=== PATIENT | female | born 1985 | race Caucasian/White ===

== ENCOUNTER 2016-10-29 03:12 | Inpatient (IN) | payer BC ==
[2016-10-29] MEDS ORDERED: Lactated Ringers 1,000 ML IV SCH ×2 (04:30→18:45)
[2016-10-29] MEDS ORDERED: Ondansetron 4 MG/2 ML SDV IV PRN (06:03)
[2016-10-29] MEDS ORDERED: Calcium Carbonate 500 MG Tab.Chew PO PRN (06:03)
[2016-10-29] MEDS ORDERED: Sodium Chloride 0.9% 10 ML Syringe FLUSH PRN (06:03)
[2016-10-29] MEDS ORDERED: Acetaminophen 325 MG Tab PO PRN (06:03)
--- NOTE | 2016-10-29 07:17 | PCM.LDHP ---
L&D History of Present Illness - General Date of Service: 10/29/16 (RIGO-11/04/2016) Admit Problem/Dx: Patient Status Order with Admit Dx/Problem 10/29/16 06:03 Patient Status [ADT] Routine Admission Diagnosis/Problem Admission Diagnosis/Problem Source of Information: Patient History Limitations: Reports: No Limitations - History of Present Illness Improves with: Reports: None Worsens with: Reports: None Associated Symptoms: Reports: N - Related Data Allergies/Adverse Reactions: Allergies Allergy/AdvReac Type Severity Reaction Status Date / Time No Known Allergies Allergy Verified 10/29/16 03:20 Home Medications: Home Meds Pnv22/Iron Cbn&Gluc/Fa/Dss/Dha [PNV OB + DHA] 1 each PO DAILY 10/29/16 [History] Past Medical History HEENT History: Reports: Impaired Vision COST ANALYST History: Reports: None, Other (See Below) : 2 Para: 0 Other OB/BYN History: leep procedure hx D&C ITP. RIGO-11/04/2016 Social & Family History - Tobacco Use Smoking Status *Q: Never Smoker - Caffeine Use Caffeine Use: Reports: None - Recreational Drug Use Recreational Drug Use: No H&P Review of Systems - Review of Systems: Review Of Systems: See Below General: Reports: No Symptoms HEENT: Reports: No Symptoms Pulmonary: Reports: No Symptoms Cardiovascular: Reports: No Symptoms Gastrointestinal: Reports: No Symptoms Genitourinary: Reports: No Symptoms Musculoskeletal: Reports: No Symptoms Skin: Reports: No Symptoms Psychiatric: Reports: No Symptoms Neurological: Reports: No Symptoms Hematologic/Lymphatic: Reports: No Symptoms Immunologic: Reports: No Symptoms L&D Exam - Exam Exam: See Below - Vital Signs Vital Signs: Last Vital Signs Temp 36.3 C 10/29/16 03:32 Pulse 118 H 10/29/16 06:31 Resp 18 10/29/16 06:31 BP 136/81 10/29/16 06:31 Pulse Ox - OB Specific Contraction Duration (sec): 40-50 Contraction Frequency (min): 1.5-2 Contraction Intensity: Mild to Moderate Movement: Active Heart Tones: Present Presentation: Vertex - Cronin Score Cronin Score Cervix Position: Posterior Cronin Score Consistency: Medium Cronin Score Effacement: 51-70% Cronin Score Dilation: 1-2 cm Cronin Score Infant's Station: -2 Cronin Score Total: 5 - Exam General: Alert, Oriented HEENT: PERRLA, Conjunctiva Clear, EACs Clear, EOMI, Hearing Intact, Mucosa Moist & [place], Nares Patent, Normal Nasal Septum, Posterior Pharynx Clear, Pupils Equal, Pupils Reactive, TMs Clear Neck: Supple, Trachea Midline Lungs: Clear to Auscultation, Normal Respiratory Effort Cardiovascular: Regular Rate, Regular Rhythm Abdomen: Normal Bowel Sounds, Soft, Pelvis Stable Genitourinary: Normal external exam Back Exam: Normal Inspection, Full Range of Motion Extremities: Normal Inspection Skin: Warm, Dry, Intact Neurological: Cranial Nerves Intact, Reflexes Equal Bilateral DTR: 2+: Patella (L), Patella (R) Psychiatric: Alert, Normal Affect, Normal Mood - Patient Data Lab Results last 24 hrs: Laboratory Results - last 24 hr 10/29/16 10/29/16 10/29/16 Range/Units 03:18 03:32 04:29 WBC 14.6 H (4.5-11.0) K/uL RBC 4.75 (3.30-5.50) M/uL Hgb 13.1 (12.0-15.0) g/dL Hct 39.5 (36.0-48.0) % MCV 83 (80-98) fL MCH 28 (27-31) pg MCHC 33 (32-36) % Plt Count 97 L (150-400) K/uL Neut % (Auto) 80 H (36-66) % Lymph % (Auto) 12 L (24-44) % [place] % (Auto) 7 H (2-6) % Eos % (Auto) 1 L (2-4) % Baso % (Auto) 0 (0-1) % Urine Color Yellow Urine Appearance Slightly cloudy Urine pH 5.0 (4.5-8.0) Ur Specific [place] 1.025 (1.008-1.030) Urine Protein Negative (NEGATIVE) mg/dL Urine Glucose (UA) Normal (NEGATIVE) mg/dL Urine Ketones Negative (NEGATIVE) mg/dL Urine Occult Blood Moderate (NEGATIVE) Urine Nitrite Negative (NEGATIVE) Urine Bilirubin Negative (NEGATIVE) Urine Urobilinogen Normal (NORMAL) mg/dL Ur Leukocyte Esterase Negative (NEGATIVE) Urine RBC 5-10 H (0-5) Urine WBC 0-5 (0-5) Ur Epithelial Cells Moderate Amorphous Sediment Not seen Urine Bacteria Few Urine Mucus Moderate Membrane Rupture Positive H (NEGATIVE) Result Diagrams: 10/29/16 04:29 - Problem List (1) SNOMED Code(s): 29630293 ICD Code: Z33.1 - STATE, INCIDENTAL Status: Acute Current Visit : Yes Qualifiers: Weeks of gestation: 39 weeks Qualified Code(s): Z3A.39 - 39 weeks gestation of (2) PROM (premature rupture of membranes) SNOMED Code(s): 55648139 ICD Code: O42.90 - IWLLAM ROM, 7TH0 BETW RUPT & ONST LABR, UNSP WEEKS OF GEST Status: Acute Current Visit: Yes Qualifiers: PROM gestational age: full term (3) Chronic ITP (idiopathic thrombocytopenia) SNOMED Code(s): 065428528 ICD Code: D69.3 - IMMUNE THROMBOCYTOPENIC PURPURA Status: Acute Current Visit: Yes Problem List Initiated/Reviewed/Updated: Yes Orders Last 24hrs: Active Orders 24 hr Category Date Time Status Patient Status [ADT] Routine ADT 10/29/16 06:03 Ordered Ambulate [RC] PER UNIT ROUTINE Care 10/29/16 06:10 Ordered Communication Order [RC] ASDIRECTED Care 10/29/16 06:03 Ordered Heart Tones [RC] PER UNIT ROUTINE Care 10/29/16 06:03 Ordered May Shower [RC] ASDIRECTED Care 10/29/16 06:03 Ordered Notify Provider Vital Signs [RC] PRN Care 10/29/16 06:03 Ordered Notify Provider [RC] PRN Care 10/29/16 06:03 Ordered OB Check [OM.PC] Click to Edit Care 10/29/16 03:18 Ordered Up ad Noemi [RC] ASDIRECTED Care 10/29/16 06:03 Ordered VTE/DVT Education [RC] Click to Edit Care 10/29/16 06:05 Ordered Vital Signs [RC] PER UNIT ROUTINE Care 10/29/16 06:03 Ordered Regular Diet [DIET] Diet 10/29/16 Breakfast Active CBC WITH AUTO DIFF [HEME] Routine Lab 10/30/16 06:00 Ordered Acetaminophen [Tylenol] Med 10/29/16 06:03 Ordered 650 mg PO Q4H PRN Calcium Carbonate [Tums] Med 10/29/16 06:03 Ordered 1,000 mg PO Q2HR PRN Lactated Ringers [Ringers, Lactated] 1,000 ml Med 10/29/16 04:30 Active IV ASDIRECTED Ondansetron [Zofran] Med 10/29/16 06:03 Ordered 4 mg IV Q4H PRN Oxytocin/Normal Saline [Pitocin in NS 20 Units/1,000 ML Med 10/29/16 04:30 Active ] 20 unit in 1,000 ml IV TITRATE Sodium Chloride 0.9% [Saline Flush] Med 10/29/16 06:03 Ordered 10 ml FLUSH ASDIRECTED PRN fentaNYL [Sublimaze] Med 10/29/16 06:03 Ordered 100 mcg IVPUSH Q1H PRN DVT/VTE Prophylaxis Reflex [OM.PC] Routine Oth 10/29/16 06:03 Ordered Saline Lock Insert [OM.PC] Routine Oth 10/29/16 06:03 Ordered Resuscitation Status Routine Resus Stat 10/29/16 06:03 Ordered Medication Orders Acetaminophen (Tylenol) 650 mg PO Q4H PRN PRN Reason: Pain (Mild 1-3) and fever Calcium Carbonate/Glycine (Tums) 1,000 mg PO Q2H PRN PRN Reason: Indigestion Fentanyl (Sublimaze) 100 mcg IVPUSH Q1H PRN PRN Reason: Pain (moderate 4-6) Oxytocin/Sodium Chloride (Pitocin In Ns 20 Units/1,000 Ml) 20 unit in 1,000 mls @ 6 mls/hr IV TITRATE REHANA; 2 MUNITS/MIN PRN Reason: Protocol Last Admin: 10/29/16 04:45 Dose: 2 munits/min, 6 mls/hr Lactated Ringer's (Ringers, Lactated) 1,000 mls @ 0 mls/hr IV ASDIRECTED REHANA PRN Reason: KVO Last Admin: 10/29/16 04:41 Dose: 25 mls/hr Ondansetron HCl (Zofran) 4 mg IV Q4H PRN PRN Reason: Nausea/Vomiting Sodium Chloride (Saline Flush) 10 ml FLUSH ASDIRECTED PRN PRN Reason: Keep Vein Open Assessment/Plan Comment:: 10/29/2016 31 yo at 39 1/7 weeks gestational states she ruptured around 930pm last night but was unsure if leaking was it till a big gush at 0200. SVE-//-2 ruptured Labs-GBS negative, A positive, Rubella Immune, RPR Nonreactive, Hep B negative, HIV negative, Hgb 13.1, Platelets 97 Chronic ITP Plan- Monitor for active labor Initiate Pitocin per protocol Up and about monitoring per protocol Pain management per her request Plan and anticipate a vaginal delivery
--- NOTE | 2016-10-29 12:29 | PCM.PNLD ---
Labor Progress Note - VS & Meds Vital Signs: Last Vital Signs Temp 36.6 C 10/29/16 10:20 Pulse 107 H 10/29/16 10:20 Resp 14 10/29/16 07:15 BP 125/78 10/29/16 10:20 Pulse Ox Active Medications: Current Medications Acetaminophen (Tylenol) 650 mg PO Q4H PRN PRN Reason: Pain (Mild 1-3) and fever Calcium Carbonate/Glycine (Tums) 1,000 mg PO Q2H PRN PRN Reason: Indigestion Fentanyl (Sublimaze) 100 mcg IVPUSH Q1H PRN PRN Reason: Pain (moderate 4-6) Oxytocin/Sodium Chloride (Pitocin In Ns 20 Units/1,000 Ml) 20 unit in 1,000 mls @ 6 mls/hr IV TITRATE REHANA; 2 MUNITS/MIN PRN Reason: Protocol Last Titration: 10/29/16 11:48 Dose: 4 munits/min, 12 mls/hr Lactated Ringer's (Ringers, Lactated) 1,000 mls @ 0 mls/hr IV ASDIRECTED REHANA PRN Reason: KVO Last Admin: 10/29/16 04:41 Dose: 25 mls/hr Lactated Ringer's (Ringers, Lactated) 1,000 mls @ 999 mls/hr IV BOLUS REHANA Penicillin G Potassium 5 (millunits/ Sodium Chloride) 100 mls @ 200 mls/hr IV ONETIME ONE Stop: 10/29/16 15:29 Penicillin G Potassium 2.5 (millunits/ Sodium Chloride) 100 mls @ 200 mls/hr IV Q4H REHANA Ondansetron HCl (Zofran) 4 mg IV Q4H PRN PRN Reason: Nausea/Vomiting Sodium Chloride (Saline Flush) 10 ml FLUSH ASDIRECTED PRN PRN Reason: Keep Vein Open - Uterine Contractions Uterine Monitoring Mode: External [place] Contraction Frequency (min): 2 Contraction Duration (sec): 60 Contraction Intensity: Moderate Uterine Resting Tone: Soft - Monitoring Decelerations: None Strip Review: Category I - Vaginal Exam Dilation (cm): 2-3 Effacement (Percent): 80 Station: -2 Cervical Position: Midposition Sterile Vaginal Exam Performed By: Lucille Vargas Vaginal Exam Comment: lucille haider - Labor Progress (Free Text) Labor Progress: 10/29/2013 Patient remains in latent labor SVE-2-3/80/-2 more midposition now Patient well controlled with breathing and position changes and has been in the tub for pain control Plan- Continue to monitor for active labor Continue to monitor FHTs Continue with Pitocin Pen G IV to be initiated at 18hrs post rupture Pain management per patient request Plan and anticipate a vaginal delivery
[2016-10-29] MEDS ORDERED: Lactated Ringers 500 ML IV ONE (12:30)
[2016-10-29] MEDS: fentaNYL 100 MCG/2 ML SDV IVPUSH PRN ×3 (14:42→18:10)
[2016-10-29] MEDS ORDERED: Penicillin G Potassium 5 MILLUNITS in Sodium Chloride 0.9% 100 ML IV ONE (15:00)
[2016-10-29] MEDS ORDERED: Oxytocin 10 Units/1 ML SDV ONE ×2 (15:45→22:56)
[2016-10-29] MEDS ORDERED: Naloxone 0.4 MG/ML SDV ONE (15:45)
[2016-10-29] MEDS ORDERED: Lidocaine 1% 50 ML MDV ONE (15:46)
[2016-10-29] MEDS ORDERED: Lactated Ringers 1,000 ML IV ONE ×2 (17:13→17:24)
--- NOTE | 2016-10-29 17:24 | PCM.PNLD ---
Labor Progress Note - VS & Meds Vital Signs: Last Vital Signs Temp 35.7 C 10/29/16 16:28 Pulse 115 H 10/29/16 16:28 Resp 18 10/29/16 16:28 BP 108/77 10/29/16 16:28 Pulse Ox 99 10/29/16 16:28 Active Medications: Current Medications Acetaminophen (Tylenol) 650 mg PO Q4H PRN PRN Reason: Pain (Mild 1-3) and fever Calcium Carbonate/Glycine (Tums) 1,000 mg PO Q2H PRN PRN Reason: Indigestion Fentanyl (Sublimaze) 100 mcg IVPUSH Q1H PRN PRN Reason: Pain (moderate 4-6) Last Admin: 10/29/16 16:59 Dose: 100 mcg Oxytocin/Sodium Chloride (Pitocin In Ns 20 Units/1,000 Ml) 20 unit in 1,000 mls @ 6 mls/hr IV TITRATE REHANA; 2 MUNITS/MIN PRN Reason: Protocol Last Titration: 10/29/16 11:48 Dose: 4 munits/min, 12 mls/hr Lactated Ringer's (Ringers, Lactated) 1,000 mls @ 0 mls/hr IV ASDIRECTED REHANA PRN Reason: KVO Last Infusion: 10/29/16 12:57 Dose: 25 mls/hr Penicillin G Potassium 2.5 (millunits/ Sodium Chloride) 50 mls @ 100 mls/hr IV Q4H REHANA Lactated Ringer's (Ringers, Lactated) 1,000 mls @ 999 mls/hr IV BOLUS ONE Stop: 10/29/16 18:13 Ondansetron HCl (Zofran) 4 mg IV Q4H PRN PRN Reason: Nausea/Vomiting Sodium Chloride (Saline Flush) 10 ml FLUSH ASDIRECTED PRN PRN Reason: Keep Vein Open Discontinued Medications Lactated Ringer's (Ringers, Lactated) 500 mls @ 500 mls/hr IV BOLUS ONE Stop: 10/29/16 13:29 Last Admin: 10/29/16 14:19 Dose: Not Given Penicillin G Potassium 5 (millunits/ Sodium Chloride) 100 mls @ 100 mls/hr IV ONETIME ONE Stop: 10/29/16 15:59 Last Admin: 10/29/16 14:23 Dose: 100 mls/hr Lidocaine HCl (Xylocaine 1%) Confirm Administered Dose 100 ml .ROUTE .STK-MED ONE Stop: 10/29/16 15:47 Naloxone HCl (Narcan) Confirm Administered Dose 0.4 mg .ROUTE .STK-MED ONE Stop: 10/29/16 15:46 Oxytocin (Pitocin) Confirm Administered Dose 10 unit .ROUTE .STK-MED ONE Stop: 10/29/16 15:46 - Uterine Contractions Uterine Monitoring Mode: External [place] Contraction Frequency (min): 2 Contraction Duration (sec): 60 Contraction Intensity: Strong Uterine Resting Tone: Soft - Monitoring Decelerations: None Strip Review: Category I - Vaginal Exam Dilation (cm): 5 Effacement (Percent): 90 Station: 0 Cervical Position: Anterior Sterile Vaginal Exam Performed By: Lucille Vargas Vaginal Exam Comment: lucille haider - Labor Progress (Free Text) Labor Progress: 10/29/2016 Patient working hard through labor. SVE-5/90/-1-0 Patient managing pain with breathing, position change, and tub Patient has had IV pain medication and states it is not working-she requests an epidural Did type and screen due to ITP Initiated antibiotics at 18 hr rupture marly Plan- Continue to monitor labor Continue to monitor FHTs Get patient an epidural per her request Continue antibiotics for SROM-18+ hours Plan and anticipate vaginal delivery
[2016-10-29] MEDS ORDERED: ePHEDrine 50 MG/ML SDV IVPUSH ONE (17:25)
[2016-10-29] MEDS ORDERED: ePHEDrine 50 MG/ML SDV IVPUSH PRN ×2 (17:35→19:12)
[2016-10-29] MEDS ORDERED: ePHEDrine 50 MG/ML SDV ONE (17:41)
[2016-10-29] MEDS ORDERED: Ropivacaine 100 ML ONE (18:51)
[2016-10-29] MEDS ORDERED: Naloxone 0.4 MG/ML SDV IVPUSH PRN (19:09)
[2016-10-29] MEDS: Penicillin G Potassium 2.5 MILLUNITS in Sodium Chloride 0.9% 50 ML IV SCH (19:14)
--- NOTE | 2016-10-29 19:14 | PCM.PNLD ---
Labor Progress Note - VS & Meds Vital Signs: Last Vital Signs Temp 35.3 C 10/29/16 18:17 Pulse 105 H 10/29/16 18:45 Resp 18 10/29/16 18:45 BP 112/65 10/29/16 18:45 Pulse Ox 97 10/29/16 18:45 Active Medications: Current Medications Acetaminophen (Tylenol) 650 mg PO Q4H PRN PRN Reason: Pain (Mild 1-3) and fever Calcium Carbonate/Glycine (Tums) 1,000 mg PO Q2H PRN PRN Reason: Indigestion Ephedrine Sulfate (Ephedrine Sulfate) 50 mg IVPUSH ASDIRECTED PRN PRN Reason: PER EPIDURAL PROTOCOL Fentanyl (Sublimaze) 100 mcg IVPUSH Q1H PRN PRN Reason: Pain (moderate 4-6) Last Admin: 10/29/16 18:10 Dose: 100 mcg Oxytocin/Sodium Chloride (Pitocin In Ns 20 Units/1,000 Ml) 20 unit in 1,000 mls @ 6 mls/hr IV TITRATE REHANA; 2 MUNITS/MIN PRN Reason: Protocol Last Titration: 10/29/16 11:48 Dose: 4 munits/min, 12 mls/hr Lactated Ringer's (Ringers, Lactated) 1,000 mls @ 0 mls/hr IV ASDIRECTED REHANA PRN Reason: KVO Last Infusion: 10/29/16 12:57 Dose: 25 mls/hr Penicillin G Potassium 2.5 (millunits/ Sodium Chloride) 50 mls @ 100 mls/hr IV Q4H REHANA Lactated Ringer's (Ringers, Lactated) 1,000 mls @ 125 mls/hr IV ASDIRECTED REHANA Naloxone HCl (Narcan) 0.1 mg IVPUSH ASDIRECTED PRN PRN Reason: RESPIRATORY STATUS Ondansetron HCl (Zofran) 4 mg IV Q4H PRN PRN Reason: Nausea/Vomiting Sodium Chloride (Saline Flush) 10 ml FLUSH ASDIRECTED PRN PRN Reason: Keep Vein Open Discontinued Medications Ephedrine Sulfate (Ephedrine Sulfate) 50 mg IVPUSH ONETIME ONE Stop: 10/29/16 17:26 Ephedrine Sulfate (Ephedrine Sulfate) Confirm Administered Dose 50 mg .ROUTE .STK-MED ONE Stop: 10/29/16 17:42 Lactated Ringer's (Ringers, Lactated) 500 mls @ 500 mls/hr IV BOLUS ONE Stop: 10/29/16 13:29 Last Admin: 10/29/16 14:19 Dose: Not Given Penicillin G Potassium 5 (millunits/ Sodium Chloride) 100 mls @ 100 mls/hr IV ONETIME ONE Stop: 10/29/16 15:59 Last Admin: 10/29/16 14:23 Dose: 100 mls/hr Lactated Ringer's (Ringers, Lactated) 1,000 mls @ 999 mls/hr IV BOLUS ONE Stop: 10/29/16 18:13 Last Admin: 10/29/16 17:31 Dose: 999 mls/hr Lactated Ringer's (Ringers, Lactated) 1,000 mls @ 999 mls/hr IV .BOLUS ONE Stop: 10/29/16 18:24 Ropivacaine (Naropin 0.2%) Confirm Administered Dose 100 mls @ as directed .ROUTE .STK-MED ONE Stop: 10/29/16 18:52 Lidocaine HCl (Xylocaine 1%) Confirm Administered Dose 100 ml .ROUTE .STK-MED ONE Stop: 10/29/16 15:47 Naloxone HCl (Narcan) Confirm Administered Dose 0.4 mg .ROUTE .STK-MED ONE Stop: 10/29/16 15:46 Oxytocin (Pitocin) Confirm Administered Dose 10 unit .ROUTE .STK-MED ONE Stop: 10/29/16 15:46 - Uterine Contractions Uterine Monitoring Mode: External [place] Contraction Frequency (min): 2 Contraction Duration (sec): 60 Contraction Intensity: Strong Uterine Resting Tone: Soft - Monitoring Decelerations: None Strip Review: Category I - Vaginal Exam Dilation (cm): 8.5 Effacement (Percent): 100 Station: 0 Cervical Position: Anterior Sterile Vaginal Exam Performed By: Lucille Vargas Vaginal Exam Comment: lucille haider - Labor Progress (Free Text) Labor Progress: 10/29/2016 Patient now comfortable with epidural SVE-8-9/100/0-+1 FHTs category one Ctx every 1.5-3mins on Pitocin Plan- Continue to monitor labor Continue to monitor FHTs Continue Pitocin as is May place anderson catheter Let patient rest Plan and anticipate vaginal delivery
[2016-10-29] MEDS ORDERED: ceFAZolin 2 GM in Premix Bag 1 BAG IV ONE (21:24)
[2016-10-29] MEDS ORDERED: Midazolam 1 MG/ML 2 ML SDV ONE (22:14)
[2016-10-29] MEDS ORDERED: fentaNYL 250 MCG/5 ML SDV ONE (22:14)
[2016-10-29] MEDS ORDERED: Ondansetron 4 MG/2 ML SDV ONE (22:15)
[2016-10-29] MEDS ORDERED: Neostigmine Methylsulfate 1 MG/ML 5 ML Syringe ONE (22:15)
[2016-10-29] MEDS ORDERED: Rocuronium 50 MG/5 ML Vial ONE (22:15)
[2016-10-29] MEDS ORDERED: Succinylcholine/Normal Saline 200 MG/10 ML Syringe ONE (22:15)
[2016-10-29] MEDS ORDERED: Propofol 200 MG/20 ML SDV ONE (22:15)
[2016-10-29] MEDS ORDERED: Dexamethasone 4 MG/ML SDV ONE (22:15)
[2016-10-29] MEDS ORDERED: Methylergonovine 0.2 MG/1 ML Amp ONE (22:21)
[2016-10-29] MEDS ORDERED: Benzocaine 20% Top Spray 56 GM Bottle TOP PRN (23:23)
[2016-10-29] MEDS ORDERED: Witch Hazel Medicated Pads 100/Jar TOP PRN (23:23)
[2016-10-29] MEDS ORDERED: Acetaminophen/HYDROcodone 325-5 MG Tab PO PRN (23:23)
[2016-10-29] MEDS ORDERED: Ibuprofen 600 MG Tab PO PRN (23:23)
[2016-10-29] MEDS ORDERED: Lanolin 100% Cream 40 GM Tube TOP PRN (23:23)
--- NOTE | 2016-10-29 23:41 | PCM.DEL ---
L & D Note - General Info Date of Service: 10/29/16 - Delivery Note Labor: spontaneous, augmented by oxytocin Delivery Outcome: Livebirth Delivery Method: Spontaneous Vaginal Delivery Presentation: Right Occiput Anterior (PIYUSH) Nuchal cord: present (times one) Anesthesia Type: Epidural Amniotic Fluid Description: Clear Episiotomy Type: Right Mediolateral (repaired) Laceration: none Suture size: 3-0 Placenta: intact, spontaneous Cord: 3 vessels Estimated blood loss: 400 Resuscitation needed: No : bulb syringe, stimulated, warmed Post Delivery Events: Other (see below) (manual placenta removal in OR) Second Stage Interventions: Reports: Encouragement Given, Pushing Effectively Delivery Comments (Free Text/Narrative):: 10/29/2016 31 yo G2 now P1 at 39 1/7 gestation delivered normal spontaneous vaginal delivery of a viable female infant at 2042 in PIYUSH position with a nuchal cord times one A right mediolateral episiotomy was cut to assist in delivery of the head-this was repaired in usual fashion. then placed on prewarmed blanket on mothers abdomen-cord double clamped, cut by father of infant, three vessel cord APGARS-9/10/10, Weight- 8lbs 1oz, Length-20.6 inches, bulb suctioned, warmed, dried, and stimulated then began to vigorously cry Placenta did not detach so was brought to OR for manual removal after multiple attempts to remove in room. No lacerations of cervix, vagina or rectum noted EBL-400ml before OR stable skin to skin with mother, mother remains stable-being prepped for OR - General Info Date of Service: 10/29/16 Admission Dx/Problem (Free Text): Patient Status Order with Admit Dx/Problem 10/29/16 06:03 Patient Status [ADT] Routine Admission Diagnosis/Problem Admission Diagnosis/Problem Functional Status: Reports: pain controlled - Review of Systems General: Reports: No Symptoms HEENT: Reports: no symptoms Pulmonary: Reports: no symptoms Cardiovascular: Reports: No Symptoms Gastrointestinal: Reports: No symptoms Genitourinary: Reports: no symptoms Musculoskeletal: Reports: no symptoms Skin: Reports: no symptoms Neurological: Reports: No Symptoms Psychiatric: Reports: no symptoms - Patient Data Vitals - most recent: Last Vital Signs Temp 36.9 C 10/29/16 23:15 Pulse 102 H 10/29/16 23:25 Resp 18 10/29/16 23:25 BP 117/76 10/29/16 23:25 Pulse Ox 98 10/29/16 23:25 Weight - most recent: 101.151 kg I&O - last 24 hours: Intake & Output 10/29/16 10/29/16 10/30/16 14:59 22:59 06:59 Intake Total 600 50 500 Balance 600 50 500 Lab Results last 24 hrs: Laboratory Results - last 24 hr 10/29/16 10/29/16 10/29/16 Range/Units 03:18 03:32 04:29 WBC 14.6 H (4.5-11.0) K/uL RBC 4.75 (3.30-5.50) M/uL Hgb 13.1 (12.0-15.0) g/dL Hct 39.5 (36.0-48.0) % MCV 83 (80-98) fL MCH 28 (27-31) pg MCHC 33 (32-36) % Plt Count 97 L (150-400) K/uL Neut % (Auto) 80 H (36-66) % Lymph % (Auto) 12 L (24-44) % [place] % (Auto) 7 H (2-6) % Eos % (Auto) 1 L (2-4) % Baso % (Auto) 0 (0-1) % Urine Color Yellow Urine Appearance Slightly cloudy Urine pH 5.0 (4.5-8.0) Ur Specific [place] 1.025 (1.008-1.030) Urine Protein Negative (NEGATIVE) mg/dL Urine Glucose (UA) Normal (NEGATIVE) mg/dL Urine Ketones Negative (NEGATIVE) mg/dL Urine Occult Blood Moderate (NEGATIVE) Urine Nitrite Negative (NEGATIVE) Urine Bilirubin Negative (NEGATIVE) Urine Urobilinogen Normal (NORMAL) mg/dL Ur Leukocyte Esterase Negative (NEGATIVE) Urine RBC 5-10 H (0-5) Urine WBC 0-5 (0-5) Ur Epithelial Cells Moderate Amorphous Sediment Not seen Urine Bacteria Few Urine Mucus Moderate Membrane Rupture Positive H (NEGATIVE) Urine Opiates Screen (NEGATIVE) Ur Oxycodone Screen (NEGATIVE) Urine Methadone Screen (NEGATIVE) Ur Propoxyphene Screen (NEGATIVE) Ur Barbiturates Screen (NEGATIVE) Ur Tricyclics Screen (NEGATIVE) Ur Phencyclidine Scrn (NEGATIVE) Ur Amphetamine Screen (NEGATIVE) U Methamphetamines Scrn (NEGATIVE) Urine MDMA Screen (NEGATIVE) U Benzodiazepines Scrn (NEGATIVE) U Cocaine Metab Screen (NEGATIVE) U Marijuana (THC) Screen (NEGATIVE) Blood Type Gel Antibody Screen Crossmatch 10/29/16 10/29/16 10/29/16 Range/Units 08:56 16:20 16:40 WBC (4.5-11.0) K/uL RBC (3.30-5.50) M/uL Hgb (12.0-15.0) g/dL Hct (36.0-48.0) % MCV (80-98) fL MCH (27-31) pg MCHC (32-36) % Plt Count (150-400) K/uL Neut % (Auto) (36-66) % Lymph % (Auto) (24-44) % [place] % (Auto) (2-6) % Eos % (Auto) (2-4) % Baso % (Auto) (0-1) % Urine Color Urine Appearance Urine pH (4.5-8.0) Ur Specific [place] (1.008-1.030) Urine Protein (NEGATIVE) mg/dL Urine Glucose (UA) (NEGATIVE) mg/dL Urine Ketones (NEGATIVE) mg/dL Urine Occult Blood (NEGATIVE) Urine Nitrite (NEGATIVE) Urine Bilirubin (NEGATIVE) Urine Urobilinogen (NORMAL) mg/dL Ur Leukocyte Esterase (NEGATIVE) Urine RBC (0-5) Urine WBC (0-5) Ur Epithelial Cells Amorphous Sediment Urine Bacteria Urine Mucus Membrane Rupture (NEGATIVE) Urine Opiates Screen Negative (NEGATIVE) Ur Oxycodone Screen Negative (NEGATIVE) Urine Methadone Screen Negative (NEGATIVE) Ur Propoxyphene Screen Negative (NEGATIVE) Ur Barbiturates Screen Negative (NEGATIVE) Ur Tricyclics Screen Negative (NEGATIVE) Ur Phencyclidine Scrn Negative (NEGATIVE) Ur Amphetamine Screen Negative (NEGATIVE) U Methamphetamines Scrn Negative (NEGATIVE) Urine MDMA Screen Negative (NEGATIVE) U Benzodiazepines Scrn Negative (NEGATIVE) U Cocaine Metab Screen Negative (NEGATIVE) U Marijuana (THC) Screen Negative (NEGATIVE) Blood Type A POSITIVE Gel Antibody Screen Negative Crossmatch See Detail Med Orders - Current: Current Medications Acetaminophen (Tylenol) 650 mg PO Q4H PRN PRN Reason: Pain (Mild 1-3) and fever Hydrocodone Bitart/Acetaminophen ([place] 325-5 Mg) 1 - 2 tab PO Q4H PRN PRN Reason: Pain (moderate 4-6) Benzocaine (Klip-S-Xubmjrf 20% [place]) 0 gm TOP Q4H PRN PRN Reason: Perineal Comfort Measure Calcium Carbonate/Glycine (Tums) 1,000 mg PO Q2H PRN PRN Reason: Indigestion Docusate Sodium (Colace) 100 mg PO BID PRN PRN Reason: Constipation Emollient Ointment (Lansinoh Hpa) 1 gm TOP ASDIRECTED PRN PRN Reason: Sore Nipples Ephedrine Sulfate (Ephedrine Sulfate) 5 - 10 mg IVPUSH ASDIRECTED PRN PRN Reason: PER EPIDURAL PROTOCOL Fentanyl (Sublimaze) 100 mcg IVPUSH Q1H PRN PRN Reason: Pain (moderate 4-6) Last Admin: 10/29/16 18:10 Dose: 100 mcg Oxytocin/Sodium Chloride (Pitocin In Ns 20 Units/1,000 Ml) 20 unit in 1,000 mls @ 6 mls/hr IV TITRATE REHANA; 2 MUNITS/MIN PRN Reason: Protocol Last Titration: 10/29/16 11:48 Dose: 4 munits/min, 12 mls/hr Lactated Ringer's (Ringers, Lactated) 1,000 mls @ 0 mls/hr IV ASDIRECTED REHANA PRN Reason: KVO Last Infusion: 10/29/16 12:57 Dose: 25 mls/hr Penicillin G Potassium 2.5 (millunits/ Sodium Chloride) 50 mls @ 100 mls/hr IV Q4H REHANA Last Admin: 10/29/16 19:14 Dose: 100 mls/hr Lactated Ringer's (Ringers, Lactated) 1,000 mls @ 125 mls/hr IV ASDIRECTED REHANA Cefoxitin Sodium 2 gm/ Sodium (Chloride) 50 mls @ 100 mls/hr IV Q6H REHANA Oxytocin/Sodium Chloride (Pitocin In Ns 20 Units/1,000 Ml) 20 unit in 1,000 mls @ 2,997 mls/hr IV ONETIME ONE; 999 MUNITS/MIN PRN Reason: Protocol Stop: 10/29/16 23:48 Ibuprofen (Motrin) 600 mg PO Q6H PRN PRN Reason: mild pain or fever Naloxone HCl (Narcan) 0.1 mg IVPUSH ASDIRECTED PRN PRN Reason: RESPIRATORY STATUS Ondansetron HCl (Zofran) 4 mg IV Q4H PRN PRN Reason: Nausea/Vomiting Sodium Chloride (Saline Flush) 10 ml FLUSH ASDIRECTED PRN PRN Reason: Keep Vein Open Armando Ponce (Tucks) 1 pad TOP ASDIRECTED PRN PRN Reason: Hemorrhoids Discontinued Medications Dexamethasone (Dexamethasone) Confirm Administered Dose 4 mg .ROUTE .STK-MED ONE Stop: 10/29/16 22:16 Ephedrine Sulfate (Ephedrine Sulfate) 50 mg IVPUSH ONETIME ONE Stop: 10/29/16 17:26 Ephedrine Sulfate (Ephedrine Sulfate) 50 mg IVPUSH ASDIRECTED PRN PRN Reason: PER EPIDURAL PROTOCOL Ephedrine Sulfate (Ephedrine Sulfate) Confirm Administered Dose 50 mg .ROUTE .STK-MED ONE Stop: 10/29/16 17:42 Fentanyl (Sublimaze) Confirm Administered Dose 250 mcg .ROUTE .STK-MED ONE Stop: 10/29/16 22:15 Glycopyrrolate () Confirm Administered Dose 1 mg .ROUTE .STK-MED ONE Stop: 10/29/16 22:16 Lactated Ringer's (Ringers, Lactated) 500 mls @ 500 mls/hr IV BOLUS ONE Stop: 10/29/16 13:29 Last Admin: 10/29/16 14:19 Dose: Not Given Penicillin G Potassium 5 (millunits/ Sodium Chloride) 100 mls @ 100 mls/hr IV ONETIME ONE Stop: 10/29/16 15:59 Last Admin: 10/29/16 14:23 Dose: 100 mls/hr Lactated Ringer's (Ringers, Lactated) 1,000 mls @ 999 mls/hr IV BOLUS ONE Stop: 10/29/16 18:13 Last Admin: 10/29/16 17:31 Dose: 999 mls/hr Lactated Ringer's (Ringers, Lactated) 1,000 mls @ 999 mls/hr IV .BOLUS ONE Stop: 10/29/16 18:24 Ropivacaine (Naropin 0.2%) Confirm Administered Dose 100 mls @ as directed .ROUTE .STK-MED ONE Stop: 10/29/16 18:52 Cefazolin Sodium/Dextrose 2 gm (/ Premix) 50 mls @ 100 mls/hr IV ONETIME ONE Stop: 10/29/16 21:53 Last Admin: 10/29/16 22:21 Dose: 100 mls/hr Lidocaine HCl (Xylocaine 1%) Confirm Administered Dose 100 ml .ROUTE .STK-MED ONE Stop: 10/29/16 15:47 Methylergonovine Maleate (Methergine) Confirm Administered Dose 0.2 mg .ROUTE .STK-MED ONE Stop: 10/29/16 22:22 Midazolam HCl (Versed 1 Mg/Ml) Confirm Administered Dose 2 mg .ROUTE .STK-MED ONE Stop: 10/29/16 22:15 Naloxone HCl (Narcan) Confirm Administered Dose 0.4 mg .ROUTE .STK-MED ONE Stop: 10/29/16 15:46 Neostigmine Methylsulfate (Neostigmine) Confirm Administered Dose 5 mg .ROUTE .STK-MED ONE Stop: 10/29/16 22:16 Ondansetron HCl (Zofran) Confirm Administered Dose 4 mg .ROUTE .STK-MED ONE Stop: 10/29/16 22:16 Oxytocin (Pitocin) Confirm Administered Dose 10 unit .ROUTE .STK-MED ONE Stop: 10/29/16 15:46 Oxytocin (Pitocin) Confirm Administered Dose 20 unit .ROUTE .STK-MED ONE Stop: 10/29/16 22:57 Propofol (Diprivan 20 Ml) Confirm Administered Dose 200 mg .ROUTE .STK-MED ONE Stop: 10/29/16 22:16 Rocuronium [place] (Zemuron) Confirm Administered Dose 50 mg .ROUTE .STK-MED ONE Stop: 10/29/16 22:16 Succinylcholine Chloride (Succinylcholine In Ns Pf) Confirm Administered Dose 200 mg .ROUTE .STK-MED ONE Stop: 10/29/16 22:16 - Exam General: alert, oriented HEENT: Pupils equal, Pupils reactive, EOMI, Mucous membr. moist/pink Neck: supple Lungs: Clear to auscultation, Normal respiratory effort Cardiovascular: Regular Rate, Regular Rhythm Abdomen: bowel sounds present, soft, no tenderness, no distension (Female) Exam: Normal External Exam, Normal Bimanual Exam, Enlarged Uterus, Vaginal Bleeding Back Exam: Normal Inspection, Full Range of Motion Extremities: no edema Skin: warm, dry, intact Wound/Incisions: healing well Neurological: no new focal deficit Psy/Mental Status: alert, normal affect, normal mood - Problem List & Annotations (1) SNOMED Code(s): 81011453 Code(s): Z33.1 - STATE, INCIDENTAL Status: Acute Current Visit: Yes Qualifiers: Weeks of gestation: 39 weeks Qualified Code(s): Z3A.39 - 39 weeks gestation of (2) PROM (premature rupture of membranes) SNOMED Code(s): 50382073 Code(s): O42.90 - WILLAM ROM, 7TH0 BETW RUPT & ONST LABR, UNSP WEEKS OF GEST Status: Acute Current Visit: Yes Qualifiers: PROM gestational age: full term (3) Chronic ITP (idiopathic thrombocytopenia) SNOMED Code(s): 007501064 Code(s): D69.3 - IMMUNE THROMBOCYTOPENIC PURPURA Status: Acute Current Visit: Yes (4) Retained placenta SNOMED Code(s): 901195172 Code(s): O73.0 - RETAINED PLACENTA WITHOUT HEMORRHAGE Status: Acute Current Visit: Yes Qualifiers: Retained placenta detail: complete placenta Qualified Code(s): O73.0 - Retained placenta without hemorrhage (5) Prolonged rupture of membranes Status: Acute Current Visit: Yes - Problem List Review Problem List Initiated/Reviewed/Updated: Yes - My Orders Last 24 Hours: My Active Orders 10/29/16 03:18 OB Check [OM.PC] Click to Edit 10/29/16 04:30 Lactated Ringers [Ringers, Lactated] 1,000 ml IV ASDIRECTED Oxytocin/Normal Saline [Pitocin in NS 20 Units/1,000 ML] 20 unit in 1,000 ml IV TITRATE 10/29/16 06:03 Patient Status [ADT] Routine Communication Order [RC] ASDIRECTED May Shower [RC] ASDIRECTED Notify Provider Vital Signs [RC] PRN Up ad Noemi [RC] ASDIRECTED Vital Signs [RC] PER UNIT ROUTINE Acetaminophen [Tylenol] 650 mg PO Q4H PRN Calcium Carbonate [Tums] 1,000 mg PO Q2H PRN Ondansetron [Zofran] 4 mg IV Q4H PRN Sodium Chloride 0.9% [Saline Flush] 10 ml FLUSH ASDIRECTED PRN fentaNYL [Sublimaze] 100 mcg IVPUSH Q1H PRN DVT/VTE Prophylaxis Reflex [OM.PC] Routine Saline Lock Insert [OM.PC] Routine Resuscitation Status Routine 10/29/16 06:05 VTE/DVT Education [RC] Click to Edit 10/29/16 06:10 Ambulate [RC] PER UNIT ROUTINE 10/29/16 16:20 PATIENT RETYPE [BBK] Routine TYPE AND SCREEN [BBK] Routine 10/29/16 16:40 RED BLOOD CELLS LP [BBK] Routine 10/29/16 17:24 Local Anesthetic Infusion Pump [RC] ASDIRECTED PCEA Epidural [RC] ASDIRECTED Epidural Catheter Management [OM.PC] Routine 10/29/16 18:45 Lactated Ringers [Ringers, Lactated] 1,000 ml IV ASDIRECTED 10/29/16 19:00 Penicillin G Potassium [Pfizerpen] 2.5 millunits Sodium Chloride 0.9% [Normal Saline] 50 ml IV Q4H 10/29/16 19:09 Naloxone [Narcan] 0.1 mg IVPUSH ASDIRECTED PRN 10/29/16 19:12 ePHEDrine [ePHEDrine Sulfate] 5 - 10 mg IVPUSH ASDIRECTED PRN 10/29/16 20:43 Patient Status [ADT] Routine 10/29/16 23:23 Vital Signs [RC] PFP Acetaminophen/HYDROcodone [[place] 325-5 MG] 1 - 2 tab PO Q4H PRN Benzocaine [Mfgx-D-Jurocrh 20% [place]] See Dose Instructions TOP Q4H PRN Docusate Sodium [Colace] 100 mg PO BID PRN Ibuprofen [Motrin] 600 mg PO Q6H PRN Lanolin [Lansinoh HPA] 1 gm TOP ASDIRECTED PRN Witch Rosario [Tucks] 1 pad TOP ASDIRECTED PRN Assess Lochia [WOMSER] Per Unit Routine Assess Uterine Involution [WOMSER] Per Unit Routine 10/29/16 23:25 Perineal Care [OM.PC] Per Unit Routine Sitz Bath [OM.PC] Per Unit Routine 10/29/16 23:28 Oxytocin/Normal Saline [Pitocin in NS 20 Units/1,000 ML] 20 unit in 1,000 ml IV ONETIME 10/29/16 23:30 cefOXitin [Mefoxin] 2 gm Sodium Chloride 0.9% [Normal Saline] 50 ml IV Q6H 10/29/16 Breakfast Regular Diet [DIET] 10/30/16 06:00 CBC WITH AUTO DIFF [HEME] Routine 10/31/16 06:00 CBC WITH AUTO DIFF [HEME] Routine - Assessment Assessment:: 10/29/2016 31 yo normal spontaneous vaginal delivery @ 3 Medial episiotomy with repair Hemorrhage Retained placenta manual removal in OR Prolonged rupture of membranes Chronic ITP -pumping Labs-A positive, Rubella Immune, RPR nonreactive, Hep B negative, HIV negative, GBS negative, Hgb 13.1 - Plan Plan:: 10/29/2016 31 yo at 39 1/7 weeks gestational states she ruptured around 930pm last night but was unsure if leaking was it till a big gush at 0200. SVE-/70/-2 ruptured Labs-GBS negative, A positive, Rubella Immune, RPR Nonreactive, Hep B negative, HIV negative, Hgb 13.1, Platelets 97 Chronic ITP Plan- Monitor for active labor Initiate Pitocin per protocol Up and about monitoring per protocol Pain management per her request Plan and anticipate a vaginal delivery 10/29/2016 Routine Cares Encourage regular pumping Monitor lab values Monitor fundus and bleeding Mefoxin every 6 hours times 48hrs Encourage ice, tucks, and spray to repaired laceration Pain management per patients request Plan Discharge 48 hrs after manual removal of placenta
--- NOTE | 2016-10-30 00:09 | PCM.PNPP ---
- General Info Date of Service: 10/30/16 Admission Dx/Problem (Free Text): Patient Status Order with Admit Dx/Problem 10/29/16 06:03 Patient Status [ADT] Routine Admission Diagnosis/Problem Admission Diagnosis/Problem Functional Status: Reports: pain controlled - Review of Systems General: Reports: No Symptoms HEENT: Reports: no symptoms Pulmonary: Reports: no symptoms Cardiovascular: Reports: No Symptoms Gastrointestinal: Reports: No symptoms Genitourinary: Reports: no symptoms Musculoskeletal: Reports: no symptoms Skin: Reports: no symptoms Neurological: Reports: No Symptoms Psychiatric: Reports: no symptoms - General Info Date of Service: 10/30/16 - Patient Data Vital Signs - most recent: Last Vital Signs Temp 36.7 C 10/29/16 23:45 Pulse 91 10/29/16 23:45 Resp 18 10/29/16 23:45 BP 121/84 10/29/16 23:45 Pulse Ox 98 10/29/16 23:45 Weight - most recent: 101.151 kg I&O - last 24 hours: Intake & Output 10/29/16 10/29/16 10/30/16 14:59 22:59 06:59 Intake Total 600 50 500 Balance 600 50 500 Lab Results - last 24 hrs: Laboratory Results - last 24 hr 10/29/16 10/29/16 10/29/16 Range/Units 03:18 03:32 04:29 WBC 14.6 H (4.5-11.0) K/uL RBC 4.75 (3.30-5.50) M/uL Hgb 13.1 (12.0-15.0) g/dL Hct 39.5 (36.0-48.0) % MCV 83 (80-98) fL MCH 28 (27-31) pg MCHC 33 (32-36) % Plt Count 97 L (150-400) K/uL Neut % (Auto) 80 H (36-66) % Lymph % (Auto) 12 L (24-44) % [place] % (Auto) 7 H (2-6) % Eos % (Auto) 1 L (2-4) % Baso % (Auto) 0 (0-1) % Urine Color Yellow Urine Appearance Slightly cloudy Urine pH 5.0 (4.5-8.0) Ur Specific [place] 1.025 (1.008-1.030) Urine Protein Negative (NEGATIVE) mg/dL Urine Glucose (UA) Normal (NEGATIVE) mg/dL Urine Ketones Negative (NEGATIVE) mg/dL Urine Occult Blood Moderate (NEGATIVE) Urine Nitrite Negative (NEGATIVE) Urine Bilirubin Negative (NEGATIVE) Urine Urobilinogen Normal (NORMAL) mg/dL Ur Leukocyte Esterase Negative (NEGATIVE) Urine RBC 5-10 H (0-5) Urine WBC 0-5 (0-5) Ur Epithelial Cells Moderate Amorphous Sediment Not seen Urine Bacteria Few Urine Mucus Moderate Membrane Rupture Positive H (NEGATIVE) Urine Opiates Screen (NEGATIVE) Ur Oxycodone Screen (NEGATIVE) Urine Methadone Screen (NEGATIVE) Ur Propoxyphene Screen (NEGATIVE) Ur Barbiturates Screen (NEGATIVE) Ur Tricyclics Screen (NEGATIVE) Ur Phencyclidine Scrn (NEGATIVE) Ur Amphetamine Screen (NEGATIVE) U Methamphetamines Scrn (NEGATIVE) Urine MDMA Screen (NEGATIVE) U Benzodiazepines Scrn (NEGATIVE) U Cocaine Metab Screen (NEGATIVE) U Marijuana (THC) Screen (NEGATIVE) Blood Type Gel Antibody Screen Crossmatch 10/29/16 10/29/16 10/29/16 Range/Units 08:56 16:20 16:40 WBC (4.5-11.0) K/uL RBC (3.30-5.50) M/uL Hgb (12.0-15.0) g/dL Hct (36.0-48.0) % MCV (80-98) fL MCH (27-31) pg MCHC (32-36) % Plt Count (150-400) K/uL Neut % (Auto) (36-66) % Lymph % (Auto) (24-44) % [place] % (Auto) (2-6) % Eos % (Auto) (2-4) % Baso % (Auto) (0-1) % Urine Color Urine Appearance Urine pH (4.5-8.0) Ur Specific [place] (1.008-1.030) Urine Protein (NEGATIVE) mg/dL Urine Glucose (UA) (NEGATIVE) mg/dL Urine Ketones (NEGATIVE) mg/dL Urine Occult Blood (NEGATIVE) Urine Nitrite (NEGATIVE) Urine Bilirubin (NEGATIVE) Urine Urobilinogen (NORMAL) mg/dL Ur Leukocyte Esterase (NEGATIVE) Urine RBC (0-5) Urine WBC (0-5) Ur Epithelial Cells Amorphous Sediment Urine Bacteria Urine Mucus Membrane Rupture (NEGATIVE) Urine Opiates Screen Negative (NEGATIVE) Ur Oxycodone Screen Negative (NEGATIVE) Urine Methadone Screen Negative (NEGATIVE) Ur Propoxyphene Screen Negative (NEGATIVE) Ur Barbiturates Screen Negative (NEGATIVE) Ur Tricyclics Screen Negative (NEGATIVE) Ur Phencyclidine Scrn Negative (NEGATIVE) Ur Amphetamine Screen Negative (NEGATIVE) U Methamphetamines Scrn Negative (NEGATIVE) Urine MDMA Screen Negative (NEGATIVE) U Benzodiazepines Scrn Negative (NEGATIVE) U Cocaine Metab Screen Negative (NEGATIVE) U Marijuana (THC) Screen Negative (NEGATIVE) Blood Type A POSITIVE Gel Antibody Screen Negative Crossmatch See Detail Med Orders - Current: Current Medications Acetaminophen (Tylenol) 650 mg PO Q4H PRN PRN Reason: Pain (Mild 1-3) and fever Hydrocodone Bitart/Acetaminophen ([place] 325-5 Mg) 1 - 2 tab PO Q4H PRN PRN Reason: Pain (moderate 4-6) Benzocaine (Nxtg-P-Lvkwnnp 20% [place]) 0 gm TOP Q4H PRN PRN Reason: Perineal Comfort Measure Calcium Carbonate/Glycine (Tums) 1,000 mg PO Q2H PRN PRN Reason: Indigestion Docusate Sodium (Colace) 100 mg PO BID PRN PRN Reason: Constipation Emollient Ointment (Lansinoh Hpa) 1 gm TOP ASDIRECTED PRN PRN Reason: Sore Nipples Ephedrine Sulfate (Ephedrine Sulfate) 5 - 10 mg IVPUSH ASDIRECTED PRN PRN Reason: PER EPIDURAL PROTOCOL Fentanyl (Sublimaze) 100 mcg IVPUSH Q1H PRN PRN Reason: Pain (moderate 4-6) Last Admin: 10/29/16 18:10 Dose: 100 mcg Oxytocin/Sodium Chloride (Pitocin In Ns 20 Units/1,000 Ml) 20 unit in 1,000 mls @ 6 mls/hr IV TITRATE REHANA; 2 MUNITS/MIN PRN Reason: Protocol Last Titration: 10/29/16 11:48 Dose: 4 munits/min, 12 mls/hr Lactated Ringer's (Ringers, Lactated) 1,000 mls @ 0 mls/hr IV ASDIRECTED REHANA PRN Reason: KVO Last Infusion: 10/29/16 12:57 Dose: 25 mls/hr Penicillin G Potassium 2.5 (millunits/ Sodium Chloride) 50 mls @ 100 mls/hr IV Q4H [facility] Last Admin: 10/29/16 19:14 Dose: 100 mls/hr Lactated Ringer's (Ringers, Lactated) 1,000 mls @ 125 mls/hr IV ASDIRECTED [facility] Cefoxitin Sodium 2 gm/ Sodium (Chloride) 50 mls @ 100 mls/hr IV Q6H [facility] Lactated Ringer's (Ringers, Lactated) 1,000 mls @ 125 mls/hr IV ASDIRECTED REHANA Ibuprofen (Motrin) 600 mg PO Q6H PRN PRN Reason: mild pain or fever Naloxone HCl (Narcan) 0.1 mg IVPUSH ASDIRECTED PRN PRN Reason: RESPIRATORY STATUS Ondansetron HCl (Zofran) 4 mg IV Q4H PRN PRN Reason: Nausea/Vomiting Sodium Chloride (Saline Flush) 10 ml FLUSH ASDIRECTED PRN PRN Reason: Keep Vein Open Witch Rosario (Tucks) 1 pad TOP ASDIRECTED PRN PRN Reason: Hemorrhoids Discontinued Medications Dexamethasone (Dexamethasone) Confirm Administered Dose 4 mg .ROUTE .STK-MED ONE Stop: 10/29/16 22:16 Ephedrine Sulfate (Ephedrine Sulfate) 50 mg IVPUSH ONETIME ONE Stop: 10/29/16 17:26 Ephedrine Sulfate (Ephedrine Sulfate) 50 mg IVPUSH ASDIRECTED PRN PRN Reason: PER EPIDURAL PROTOCOL Ephedrine Sulfate (Ephedrine Sulfate) Confirm Administered Dose 50 mg .ROUTE .STK-MED ONE Stop: 10/29/16 17:42 Fentanyl (Sublimaze) Confirm Administered Dose 250 mcg .ROUTE .STK-MED ONE Stop: 10/29/16 22:15 Glycopyrrolate () Confirm Administered Dose 1 mg .ROUTE .STK-MED ONE Stop: 10/29/16 22:16 Lactated Ringer's (Ringers, Lactated) 500 mls @ 500 mls/hr IV BOLUS ONE Stop: 10/29/16 13:29 Last Admin: 10/29/16 14:19 Dose: Not Given Penicillin G Potassium 5 (millunits/ Sodium Chloride) 100 mls @ 100 mls/hr IV ONETIME ONE Stop: 10/29/16 15:59 Last Admin: 10/29/16 14:23 Dose: 100 mls/hr Lactated Ringer's (Ringers, Lactated) 1,000 mls @ 999 mls/hr IV BOLUS ONE Stop: 10/29/16 18:13 Last Admin: 10/29/16 17:31 Dose: 999 mls/hr Lactated Ringer's (Ringers, Lactated) 1,000 mls @ 999 mls/hr IV .BOLUS ONE Stop: 10/29/16 18:24 Ropivacaine (Naropin 0.2%) Confirm Administered Dose 100 mls @ as directed .ROUTE .STK-MED ONE Stop: 10/29/16 18:52 Cefazolin Sodium/Dextrose 2 gm (/ Premix) 50 mls @ 100 mls/hr IV ONETIME ONE Stop: 10/29/16 21:53 Last Admin: 10/29/16 22:21 Dose: 100 mls/hr Oxytocin/Sodium Chloride (Pitocin In Ns 20 Units/1,000 Ml) 20 unit in 1,000 mls @ 2,997 mls/hr IV ONETIME ONE; 999 MUNITS/MIN PRN Reason: Protocol Stop: 10/29/16 23:48 Lidocaine HCl (Xylocaine 1%) Confirm Administered Dose 100 ml .ROUTE .STK-MED ONE Stop: 10/29/16 15:47 Methylergonovine Maleate (Methergine) Confirm Administered Dose 0.2 mg .ROUTE .STK-MED ONE Stop: 10/29/16 22:22 Midazolam HCl (Versed 1 Mg/Ml) Confirm Administered Dose 2 mg .ROUTE .STK-MED ONE Stop: 10/29/16 22:15 Naloxone HCl (Narcan) Confirm Administered Dose 0.4 mg .ROUTE .STK-MED ONE Stop: 10/29/16 15:46 Neostigmine Methylsulfate (Neostigmine) Confirm Administered Dose 5 mg .ROUTE .STK-MED ONE Stop: 10/29/16 22:16 Ondansetron HCl (Zofran) Confirm Administered Dose 4 mg .ROUTE .STK-MED ONE Stop: 10/29/16 22:16 Oxytocin (Pitocin) Confirm Administered Dose 10 unit .ROUTE .STK-MED ONE Stop: 10/29/16 15:46 Oxytocin (Pitocin) Confirm Administered Dose 20 unit .ROUTE .STK-MED ONE Stop: 10/29/16 22:57 Propofol (Diprivan 20 Ml) Confirm Administered Dose 200 mg .ROUTE .STK-MED ONE Stop: 10/29/16 22:16 Rocuronium [place] (Zemuron) Confirm Administered Dose 50 mg .ROUTE .STK-MED ONE Stop: 10/29/16 22:16 Succinylcholine Chloride (Succinylcholine In Ns Pf) Confirm Administered Dose 200 mg .ROUTE .STK-MED ONE Stop: 10/29/16 22:16 - Infant Interaction Infant Disposition, : in Room with Family Support Person: - Recovery Exam Fundal Tone: Firm Fundal Level: 2 Fingerbreadths Below Umbilicus Fundal Placement: Midline Lochia Amount: Small Lochia Color: Rubra/Red Perineum Description: Intact, Minimal Bruising/Swelling Episiotomy/Laceration: Approximated - Problem List & Annotations (1) SNOMED Code(s): 78889771 Code(s): Z33.1 - STATE, INCIDENTAL Status: Acute Current Visit: Yes Qualifiers: Weeks of gestation: 39 weeks Qualified Code(s): Z3A.39 - 39 weeks gestation of (2) PROM (premature rupture of membranes) SNOMED Code(s): 74228836 Code(s): O42.90 - WILLAM ROM, 7TH0 BETW RUPT & ONST LABR, UNSP WEEKS OF GEST Status: Acute Current Visit: Yes Qualifiers: PROM gestational age: full term (3) Chronic ITP (idiopathic thrombocytopenia) SNOMED Code(s): 001395390 Code(s): D69.3 - IMMUNE THROMBOCYTOPENIC PURPURA Status: Acute Current Visit: Yes (4) Retained placenta SNOMED Code(s): 055885166 Code(s): O73.0 - RETAINED PLACENTA WITHOUT HEMORRHAGE Status: Acute Current Visit: Yes Qualifiers: Retained placenta detail: complete placenta Qualified Code(s): O73.0 - Retained placenta without hemorrhage (5) Prolonged rupture of membranes Status: Acute Current Visit: Yes - Problem List Review Problem List Initiated/Reviewed/Updated: Yes - My Orders Last 24 Hours: My Active Orders 10/29/16 03:18 OB Check [OM.PC] Click to Edit 10/29/16 04:30 Lactated Ringers [Ringers, Lactated] 1,000 ml IV ASDIRECTED Oxytocin/Normal Saline [Pitocin in NS 20 Units/1,000 ML] 20 unit in 1,000 ml IV TITRATE 10/29/16 06:03 Patient Status [ADT] Routine Communication Order [RC] ASDIRECTED May Shower [RC] ASDIRECTED Notify Provider Vital Signs [RC] PRN Up ad Noemi [RC] ASDIRECTED Vital Signs [RC] PER UNIT ROUTINE Acetaminophen [Tylenol] 650 mg PO Q4H PRN Calcium Carbonate [Tums] 1,000 mg PO Q2H PRN Ondansetron [Zofran] 4 mg IV Q4H PRN Sodium Chloride 0.9% [Saline Flush] 10 ml FLUSH ASDIRECTED PRN fentaNYL [Sublimaze] 100 mcg IVPUSH Q1H PRN DVT/VTE Prophylaxis Reflex [OM.PC] Routine Saline Lock Insert [OM.PC] Routine Resuscitation Status Routine 10/29/16 06:05 VTE/DVT Education [RC] Click to Edit 10/29/16 06:10 Ambulate [RC] PER UNIT ROUTINE 10/29/16 16:20 PATIENT RETYPE [BBK] Routine TYPE AND SCREEN [BBK] Routine 10/29/16 16:40 RED BLOOD CELLS LP [BBK] Routine 10/29/16 17:24 Local Anesthetic Infusion Pump [RC] ASDIRECTED PCEA Epidural [RC] ASDIRECTED Epidural Catheter Management [OM.PC] Routine 10/29/16 18:45 Lactated Ringers [Ringers, Lactated] 1,000 ml IV ASDIRECTED 10/29/16 19:00 Penicillin G Potassium [Pfizerpen] 2.5 millunits Sodium Chloride 0.9% [Normal Saline] 50 ml IV Q4H 10/29/16 19:09 Naloxone [Narcan] 0.1 mg IVPUSH ASDIRECTED PRN 10/29/16 19:12 ePHEDrine [ePHEDrine Sulfate] 5 - 10 mg IVPUSH ASDIRECTED PRN 10/29/16 20:43 Patient Status [ADT] Routine 10/29/16 23:23 Vital Signs [RC] PFP Acetaminophen/HYDROcodone [[place] 325-5 MG] 1 - 2 tab PO Q4H PRN Benzocaine [[id number]-[id number] 20% [place]] See Dose Instructions TOP Q4H PRN Docusate Sodium [Colace] 100 mg PO BID PRN Ibuprofen [Motrin] 600 mg PO Q6H PRN Lanolin [Lansinoh HPA] 1 gm TOP ASDIRECTED PRN Witmarcie Rosario [Tucks] 1 pad TOP ASDIRECTED PRN Assess Lochia [WOMSER] Per Unit Routine Assess Uterine Involution [WOMSER] Per Unit Routine 10/29/16 23:25 Perineal Care [OM.PC] Per Unit Routine Sitz Bath [OM.PC] Per Unit Routine 10/29/16 Breakfast Regular Diet [DIET] 10/30/16 00:00 cefOXitin [Mefoxin] 2 gm Sodium Chloride 0.9% [Normal Saline] 50 ml IV Q6H 10/30/16 00:15 Lactated Ringers [Ringers, Lactated] 1,000 ml IV ASDIRECTED 10/30/16 06:00 CBC WITH AUTO DIFF [HEME] Routine 10/31/16 06:00 CBC WITH AUTO DIFF [HEME] Routine - Assessment Assessment:: 10/29/2016 31 yo normal spontaneous vaginal delivery @ 2042 Medial episiotomy with repair Hemorrhage Retained placenta manual removal in OR Prolonged rupture of membranes Chronic ITP -pumping Labs-A positive, Rubella Immune, RPR nonreactive, Hep B negative, HIV negative, GBS negative, Hgb 13.1 10/30/2016 Patient back up from OR vaginal delivery Fundus firm and bleeding decreasing - Plan Plan:: 10/29/2016 31 yo at 39 1/7 weeks gestational states she ruptured around 930pm last night but was unsure if leaking was it till a big gush at 0200. SVE-/-2 ruptured Labs-GBS negative, A positive, Rubella Immune, RPR Nonreactive, Hep B negative, HIV negative, Hgb 13.1, Platelets 97 Chronic ITP Plan- Monitor for active labor Initiate Pitocin per protocol Up and about monitoring per protocol Pain management per her request Plan and anticipate a vaginal delivery 10/29/2016 Routine Cares Encourage regular pumping Monitor lab values Monitor fundus and bleeding Mefoxin every 6 hours times 48hrs Encourage ice, tucks, and spray to repaired laceration Pain management per patients request Plan Discharge 48 hrs after manual removal of placenta 10/30/2016 LR to run 125ml/hr till am after CBC CBC @ 0400 Continue antibiotics Continue Pitocin IV 125ml/hr till empty Pain management per patient request Advance diet as tolerated Ice to perineum
[2016-10-30] MEDS ORDERED: Lactated Ringers 1,000 ML IV SCH (00:15)
--- NOTE | 2016-10-30 00:45 | ANES ---
DATE OF SERVICE: 10/29/2016 Anesthesia Procedure Note INDICATIONS: Miranda Young is a 31-year-old lady in the Obstetric Department in active labor. I was asked by Lucille Vargas, certified nurse systems checkout mechanic to place a labor epidural. I was contacted earlier today for a consult on her as she has idiopathic thrombocytopenia and there was a workup on her chart from a guide changer in [place]. Her platelets are above 90,000 and as far as I am concerned anything above 75 is fine. Her H and H were 12.6 and 32.4, I believe, and so as far as I am concerned, there should not be any issues with the epidural. DESCRIPTION OF PROCEDURE: I arrived just before they had the full bolus of fluid in. I asked her if she had any questions about the procedure. She did not. Any questions that she did have were answered. She was placed in a sitting position. After a Betadine solution prep, the epidural was accomplished at what I believe is L4-5 x1 with a good feel. No paresthesia. No CSF. No blood. Lidocaine 1.5% with epinephrine 1:200,000 5 mL was injected through the needle. The epidural catheter was then placed easily to the four marly. The needle was removed and the catheter was taped in place. She was laid supine, given a bolus of ropivacaine 0.2% 15 mL over approximately 1.5 minutes without incident. She was then hooked up to a continuous infusion of ropivacaine 0.2% running at 12 mL/hour. After approximately 10 minutes, her contractions were under good control for her. She had very little discomfort, tolerated the procedure well. Ankit Nguyen CRNA /[id number]
[2016-10-30] MEDS: cefOXitin 2 GM in Sodium Chloride 0.9% 50 ML IV SCH ×4 (02:45→17:29)
[2016-10-30] MEDS: Penicillin G Potassium 2.5 MILLUNITS in Sodium Chloride 0.9% 50 ML IV SCH ×2 (06:04→07:00)
--- NOTE | 2016-10-30 08:34 | PCM.PNPP ---
- General Info Date of Service: 10/30/16 Admission Dx/Problem (Free Text): Patient Status Order with Admit Dx/Problem 10/29/16 06:03 Patient Status [ADT] Routine Admission Diagnosis/Problem Admission Diagnosis/Problem Functional Status: Reports: pain controlled - Review of Systems General: Reports: No Symptoms HEENT: Reports: no symptoms Pulmonary: Reports: no symptoms Cardiovascular: Reports: No Symptoms Gastrointestinal: Reports: No symptoms Genitourinary: Reports: no symptoms Musculoskeletal: Reports: no symptoms Skin: Reports: no symptoms Neurological: Reports: No Symptoms Psychiatric: Reports: no symptoms - General Info Date of Service: 10/30/16 (PPD 1) - Patient Data Vital Signs - most recent: Last Vital Signs Temp 99.6 F 10/30/16 02:45 Pulse 102 H 10/30/16 02:45 Resp 18 10/30/16 02:45 BP 126/88 10/30/16 02:45 Pulse Ox 99 10/30/16 02:45 Weight - most recent: 223 lb I&O - last 24 hours: Intake & Output 10/29/16 10/30/16 10/30/16 22:59 06:59 14:59 Intake Total 50 500 1050 Output Total 450 Balance 50 50 1050 Lab Results - last 24 hrs: Laboratory Results - last 24 hr 10/29/16 10/29/16 10/29/16 Range/Units 08:56 16:20 16:40 WBC (4.5-11.0) K/uL RBC (3.30-5.50) M/uL Hgb (12.0-15.0) g/dL Hct (36.0-48.0) % MCV (80-98) fL MCH (27-31) pg MCHC (32-36) % Plt Count (150-400) K/uL Neut % (Auto) (36-66) % Lymph % (Auto) (24-44) % Finney % (Auto) (2-6) % Eos % (Auto) (2-4) % Baso % (Auto) (0-1) % Urine Opiates Screen Negative (NEGATIVE) Ur Oxycodone Screen Negative (NEGATIVE) Urine Methadone Screen Negative (NEGATIVE) Ur Propoxyphene Screen Negative (NEGATIVE) Ur Barbiturates Screen Negative (NEGATIVE) Ur Tricyclics Screen Negative (NEGATIVE) Ur Phencyclidine Scrn Negative (NEGATIVE) Ur Amphetamine Screen Negative (NEGATIVE) U Methamphetamines Scrn Negative (NEGATIVE) Urine MDMA Screen Negative (NEGATIVE) U Benzodiazepines Scrn Negative (NEGATIVE) U Cocaine Metab Screen Negative (NEGATIVE) U Marijuana (THC) Screen Negative (NEGATIVE) Blood Type A POSITIVE Gel Antibody Screen Negative Crossmatch See Detail 10/30/16 Range/Units 04:15 WBC 30.9 H* (4.5-11.0) K/uL RBC 4.33 (3.30-5.50) M/uL Hgb 12.1 (12.0-15.0) g/dL Hct 35.7 L (36.0-48.0) % MCV 82 (80-98) fL MCH 28 (27-31) pg MCHC 34 (32-36) % Plt Count 93 L (150-400) K/uL Neut % (Auto) 94 H (36-66) % Lymph % (Auto) 3 L (24-44) % Finney % (Auto) 3 (2-6) % Eos % (Auto) 0 L (2-4) % Baso % (Auto) 0 (0-1) % Urine Opiates Screen (NEGATIVE) Ur Oxycodone Screen (NEGATIVE) Urine Methadone Screen (NEGATIVE) Ur Propoxyphene Screen (NEGATIVE) Ur Barbiturates Screen (NEGATIVE) Ur Tricyclics Screen (NEGATIVE) Ur Phencyclidine Scrn (NEGATIVE) Ur Amphetamine Screen (NEGATIVE) U Methamphetamines Scrn (NEGATIVE) Urine MDMA Screen (NEGATIVE) U Benzodiazepines Scrn (NEGATIVE) U Cocaine Metab Screen (NEGATIVE) U Marijuana (THC) Screen (NEGATIVE) Blood Type Gel Antibody Screen Crossmatch Med Orders - Current: Current Medications Acetaminophen (Tylenol) 650 mg PO Q4H PRN PRN Reason: Pain (Mild 1-3) and fever Last Admin: 10/30/16 06:59 Dose: 325 mg Hydrocodone Bitart/Acetaminophen (Lohman 325-5 Mg) 1 - 2 tab PO Q4H PRN PRN Reason: Pain (moderate 4-6) Last Admin: 10/30/16 06:58 Dose: 1 tab Benzocaine (Obqj-F-Outpkvg 20% [place]) 0 gm TOP Q4H PRN PRN Reason: Perineal Comfort Measure Calcium Carbonate/Glycine (Tums) 1,000 mg PO Q2H PRN PRN Reason: Indigestion Docusate Sodium (Colace) 100 mg PO BID PRN PRN Reason: Constipation Emollient Ointment (Lansinoh Hpa) 1 gm TOP ASDIRECTED PRN PRN Reason: Sore Nipples Ephedrine Sulfate (Ephedrine Sulfate) 5 - 10 mg IVPUSH ASDIRECTED PRN PRN Reason: PER EPIDURAL PROTOCOL Fentanyl (Sublimaze) 100 mcg IVPUSH Q1H PRN PRN Reason: Pain (moderate 4-6) Last Admin: 10/29/16 18:10 Dose: 100 mcg Oxytocin/Sodium Chloride (Pitocin In Ns 20 Units/1,000 Ml) 20 unit in 1,000 mls @ 6 mls/hr IV TITRATE REHANA; 2 MUNITS/MIN PRN Reason: Protocol Last Titration: 10/30/16 02:47 Dose: 0 mls/hr Lactated Ringer's (Ringers, Lactated) 1,000 mls @ 0 mls/hr IV ASDIRECTED REHANA PRN Reason: KVO Last Infusion: 10/29/16 12:57 Dose: 25 mls/hr Cefoxitin Sodium 2 gm/ Sodium (Chloride) 50 mls @ 100 mls/hr IV Q6H REHANA Last Admin: 10/30/16 06:51 Dose: 100 mls/hr Lactated Ringer's (Ringers, Lactated) 1,000 mls @ 125 mls/hr IV ASDIRECTED REHANA Last Admin: 10/30/16 00:10 Dose: 125 mls/hr Ibuprofen (Motrin) 600 mg PO Q6H PRN PRN Reason: mild pain or fever Methylergonovine Maleate (Methergine) 0.2 mg PO TID [facility] Stop: 11/01/16 09:01 Naloxone HCl (Narcan) 0.1 mg IVPUSH ASDIRECTED PRN PRN Reason: RESPIRATORY STATUS Ondansetron HCl (Zofran) 4 mg IV Q4H PRN PRN Reason: Nausea/Vomiting Sodium Chloride (Saline Flush) 10 ml FLUSH ASDIRECTED PRN PRN Reason: Keep Vein Open Witch Rosario (Tucks) 1 pad TOP ASDIRECTED PRN PRN Reason: Hemorrhoids Discontinued Medications Dexamethasone (Dexamethasone) Confirm Administered Dose 4 mg .ROUTE .[facility]-MED ONE Stop: 10/29/16 22:16 Ephedrine Sulfate (Ephedrine Sulfate) 50 mg IVPUSH ONETIME ONE Stop: 10/29/16 17:26 Last Admin: 10/30/16 05:19 Dose: Not Given Ephedrine Sulfate (Ephedrine Sulfate) 50 mg IVPUSH ASDIRECTED PRN PRN Reason: PER EPIDURAL PROTOCOL Ephedrine Sulfate (Ephedrine Sulfate) Confirm Administered Dose 50 mg .ROUTE .STK-MED ONE Stop: 10/29/16 17:42 Last Admin: 10/30/16 06:03 Dose: Not Given Fentanyl (Sublimaze) Confirm Administered Dose 250 mcg .ROUTE .STK-MED ONE Stop: 10/29/16 22:15 Glycopyrrolate () Confirm Administered Dose 1 mg .ROUTE .STK-MED ONE Stop: 10/29/16 22:16 Lactated Ringer's (Ringers, Lactated) 500 mls @ 500 mls/hr IV BOLUS ONE Stop: 10/29/16 13:29 Last Admin: 10/29/16 14:19 Dose: Not Given Penicillin G Potassium 5 (millunits/ Sodium Chloride) 100 mls @ 100 mls/hr IV ONETIME ONE Stop: 10/29/16 15:59 Last Admin: 10/29/16 14:23 Dose: 100 mls/hr Penicillin G Potassium 2.5 (millunits/ Sodium Chloride) 50 mls @ 100 mls/hr IV Q4H [facility] Last Admin: 10/30/16 07:00 Dose: Not Given Lactated Ringer's (Ringers, Lactated) 1,000 mls @ 999 mls/hr IV BOLUS ONE Stop: 10/29/16 18:13 Last Admin: 10/29/16 17:31 Dose: 999 mls/hr Lactated Ringer's (Ringers, Lactated) 1,000 mls @ 999 mls/hr IV .BOLUS ONE Stop: 10/29/16 18:24 Last Admin: 10/30/16 02:49 Dose: Not Given Lactated Ringer's (Ringers, Lactated) 1,000 mls @ 125 mls/hr IV ASDIRECTED REHANA Last Admin: 10/30/16 00:10 Dose: 125 mls/hr Ropivacaine (Naropin 0.2%) Confirm Administered Dose 100 mls @ as directed .ROUTE .STK-MED ONE Stop: 10/29/16 18:52 Cefazolin Sodium/Dextrose 2 gm (/ Premix) 50 mls @ 100 mls/hr IV ONETIME ONE Stop: 10/29/16 21:53 Last Admin: 10/29/16 22:21 Dose: 100 mls/hr Oxytocin/Sodium Chloride (Pitocin In Ns 20 Units/1,000 Ml) 20 unit in 1,000 mls @ 6 mls/hr IV ONETIME ONE; 2 MUNITS/MIN PRN Reason: Protocol Stop: 11/05/16 22:24 Last Admin: 10/29/16 23:45 Dose: 2 munits/min, 6 mls/hr Lidocaine HCl (Xylocaine 1%) Confirm Administered Dose 100 ml .ROUTE .ST-MED ONE Stop: 10/29/16 15:47 Last Admin: 10/30/16 05:19 Dose: Not Given Methylergonovine Maleate (Methergine) Confirm Administered Dose 0.2 mg .ROUTE .[facility]-MED ONE Stop: 10/29/16 22:22 Last Admin: 10/30/16 06:04 Dose: Not Given Midazolam HCl (Versed 1 Mg/Ml) Confirm Administered Dose 2 mg .ROUTE .ST-MED ONE Stop: 10/29/16 22:15 Naloxone HCl (Narcan) Confirm Administered Dose 0.4 mg .ROUTE .ST-MED ONE Stop: 10/29/16 15:46 Last Admin: 10/30/16 05:18 Dose: Not Given Neostigmine Methylsulfate (Neostigmine) Confirm Administered Dose 5 mg .ROUTE .ST-MED ONE Stop: 10/29/16 22:16 Ondansetron HCl (Zofran) Confirm Administered Dose 4 mg .ROUTE .ST-MED ONE Stop: 10/29/16 22:16 Oxytocin (Pitocin) Confirm Administered Dose 10 unit .ROUTE .ST-MED ONE Stop: 10/29/16 15:46 Last Admin: 10/30/16 05:18 Dose: Not Given Oxytocin (Pitocin) Confirm Administered Dose 20 unit .ROUTE .STK-MED ONE Stop: 10/29/16 22:57 Propofol (Diprivan 20 Ml) Confirm Administered Dose 200 mg .ROUTE .STK-MED ONE Stop: 10/29/16 22:16 Rocuronium [place] (Zemuron) Confirm Administered Dose 50 mg .ROUTE .STK-MED ONE Stop: 10/29/16 22:16 Succinylcholine Chloride (Succinylcholine In Ns Pf) Confirm Administered Dose 200 mg .ROUTE .STK-MED ONE Stop: 10/29/16 22:16 - Infant Interaction Disposition, : in Room with Family Interaction: Holding Infant Infant Feeding: Other (see below) (to pump and give bottle) Support Person: - Recovery Exam Fundal Tone: Firm Fundal Level: 1 Fingerbreadths Below Umbilicus Fundal Placement: Midline Lochia Amount: Small Lochia Color: Rubra/Red Perineum Description: Intact, Minimal Bruising/Swelling Episiotomy/Laceration: Approximated Bladder Status: Indwelling Catheter in Place Urinary Elimination: Indwelling Catheter, Other (see below) (repair looks great and swelling has subsided) - Exam General: alert, oriented HEENT: Pupils equal Neck: supple Lungs: Clear to auscultation, Normal respiratory effort Cardiovascular: Regular Rate, Regular Rhythm Abdomen: bowel sounds present, soft, no tenderness, no distension Extremities: no edema Skin: warm, dry, intact Wound/Incisions: healing well Neurological: no new focal deficit Psy/Mental Status: alert, normal affect, normal mood - Problem List & Annotations (1) hemorrhage SNOMED Code(s): 01433396 Code(s): O72.1 - OTHER IMMEDIATE HEMORRHAGE Status: Acute Current Visit: Yes (2) SNOMED Code(s): 45786350 Code(s): Z33.1 - STATE, INCIDENTAL Status: Acute Current Visit: Yes Qualifiers: Weeks of gestation: 39 weeks Qualified Code(s): Z3A.39 - 39 weeks gestation of (3) PROM (premature rupture of membranes) SNOMED Code(s): 39203068 Code(s): O42.90 - WILLAM ROM, 7TH0 BETW RUPT & ONST LABR, UNSP WEEKS OF GEST Status: Acute Current Visit: Yes Qualifiers: PROM gestational age: full term (4) Chronic ITP (idiopathic thrombocytopenia) SNOMED Code(s): 546756197 Code(s): D69.3 - IMMUNE THROMBOCYTOPENIC PURPURA Status: Chronic Current Visit: Yes (5) Retained placenta SNOMED Code(s): 954873921 Code(s): O73.0 - RETAINED PLACENTA WITHOUT HEMORRHAGE Status: Acute Current Visit: Yes Qualifiers: Retained placenta detail: complete placenta Qualified Code(s): O73.0 - Retained placenta without hemorrhage (6) Prolonged rupture of membranes Status: Acute Current Visit: Yes - Problem List Review Problem List Initiated/Reviewed/Updated: Yes - My Orders Last 24 Hours: My Active Orders 10/30/16 09:00 Methylergonovine [Methergine] 0.2 mg PO TID - Assessment Assessment:: 10/29/2016 31 yo normal spontaneous vaginal delivery @ 2042 Medial episiotomy with repair Hemorrhage Retained placenta manual removal in OR Prolonged rupture of membranes Chronic ITP -pumping Labs-A positive, Rubella Immune, RPR nonreactive, Hep B negative, HIV negative, GBS negative, Hgb 13.1 10/30/2016 Patient back up from OR vaginal delivery Fundus firm and bleeding decreasing 10/30/16 PPD 1 Doing well this morning, up and about. Voided without problem. Bleeding light to moderate without clots Repair intact and without hematoma. HGB 12.1, PLT 92486, WBC 59181 on antibiotics times 48 hours Pitocin infusion over the night Happy with baby and pumping to feed. - Plan Plan:: 10/29/2016 31 yo at 39 1/7 weeks gestational states she ruptured around 930pm last night but was unsure if leaking was it till a big gush at 0200. SVE-/-2 ruptured Labs-GBS negative, A positive, Rubella Immune, RPR Nonreactive, Hep B negative, HIV negative, Hgb 13.1, Platelets 97 Chronic ITP Plan- Monitor for active labor Initiate Pitocin per protocol Up and about monitoring per protocol Pain management per her request Plan and anticipate a vaginal delivery 10/29/2016 Routine Cares Encourage regular pumping Monitor lab values Monitor fundus and bleeding Mefoxin every 6 hours times 48hrs Encourage ice, tucks, and spray to repaired laceration Pain management per patients request Plan Discharge 48 hrs after manual removal of placenta 10/30/2016 LR to run 125ml/hr till am after CBC CBC @ 0400 Continue antibiotics Continue Pitocin IV 125ml/hr till empty Pain management per patient request Advance diet as tolerated Ice to perineum 10/31/15 0830 Stop IV pitocin which to oral methergine times two days Continue antibiotics CBC and PLT in AM Routine cares Support pumping and breast feeding
[2016-10-30] MEDS: Methylergonovine 0.2 MG Tab PO SCH ×3 (09:22→21:01)
[2016-10-30] MEDS: Docusate Sodium 100 MG Cap PO PRN ×2 (09:22→21:01)
--- NOTE | 2016-10-30 11:18 | PN ---
DATE OF SERVICE: 10/30/2016 SUBJECTIVE: Miranda is a 31-year-old female. She had a hysterotomy retained placenta removed manually through vagina on 10/29/2016. She reports she is having a little bit of cramping. She is taking Fordyce for pain, been afebrile and bleeding has stopped. REVIEW OF SYSTEMS: Remainder of review of systems negative for any pertinent positives and negatives. OBJECTIVE: GENERAL: Miranda Young is a 31-year-old female. VITAL SIGNS: TPR is 99.6, 102, 18, blood pressure 126/88. HEART: Regular rate and rhythm. LUNGS: Clear. ASSESSMENT: Hysterotomy retained placenta removed manually from her vagina, 10/29/2016. PLAN: Continue orders per CINDY Rivas certified orthotist practice manager. Kasia Mtz PA-C /[id number]
[2016-10-30] MEDS ORDERED: Ibuprofen 200 MG Tab, 24 Tab Bulk Bottle PO PRN (18:27)
[2016-10-30] MEDS ORDERED: Acetaminophen 325 MG Tab, 50 Tab Bulk Bottle PO PRN (18:27)
[2016-10-31] MEDS: cefOXitin 2 GM in Sodium Chloride 0.9% 50 ML IV SCH ×3 (00:50→12:00)
[2016-10-31] MEDS ORDERED: Acetaminophen 325 MG Tab, 50 Tab Bulk Bottle PO PRN (07:07)
[2016-10-31] MEDS: Methylergonovine 0.2 MG Tab PO SCH ×2 (09:23→13:39)
--- NOTE | 2016-10-31 11:16 | PCM.PNPP ---
- General Info Date of Service: 10/31/16 (PPD 2) Admission Dx/Problem (Free Text): Patient Status Order with Admit Dx/Problem 10/29/16 06:03 Patient Status [ADT] Routine Admission Diagnosis/Problem Admission Diagnosis/Problem Functional Status: Reports: pain controlled - Review of Systems General: Reports: No Symptoms HEENT: Reports: no symptoms Pulmonary: Reports: no symptoms Cardiovascular: Reports: No Symptoms Gastrointestinal: Reports: No symptoms Genitourinary: Reports: no symptoms Musculoskeletal: Reports: no symptoms Skin: Reports: no symptoms Neurological: Reports: No Symptoms Psychiatric: Reports: no symptoms - General Info Date of Service: 10/31/16 - Patient Data Vital Signs - most recent: Last Vital Signs Temp 97.1 F 10/30/16 14:04 Pulse 94 10/30/16 14:04 Resp 14 10/30/16 14:04 BP 113/67 10/30/16 14:04 Pulse Ox 97 10/30/16 14:04 Weight - most recent: 223 lb I&O - last 24 hours: Intake & Output 10/30/16 10/31/16 10/31/16 22:59 06:59 14:59 Intake Total 50 Balance 50 Lab Results - last 24 hrs: Laboratory Results - last 24 hr 10/31/16 Range/Units 04:15 WBC 14.9 H (4.5-11.0) K/uL RBC 3.82 (3.30-5.50) M/uL Hgb 10.5 L (12.0-15.0) g/dL Hct 32.4 L (36.0-48.0) % MCV 85 (80-98) fL MCH 28 (27-31) pg MCHC 32 (32-36) % Plt Count 96 L (150-400) K/uL Med Orders - Current: Current Medications Acetaminophen (Tylenol) 650 mg PO Q4H PRN PRN Reason: Pain (Mild 1-3) and fever Last Admin: 10/30/16 06:59 Dose: 325 mg Acetaminophen (Tylenol Bulk Bottle) 325 - 650 mg PO Q4H PRN PRN Reason: Pain Hydrocodone Bitart/Acetaminophen ([place] 325-5 Mg) 1 - 2 tab PO Q4H PRN PRN Reason: Pain (moderate 4-6) Last Admin: 10/30/16 06:58 Dose: 1 tab Benzocaine (Koxs-N-Gzbenpn 20% [place]) 0 gm TOP Q4H PRN PRN Reason: Perineal Comfort Measure Last Admin: 10/30/16 09:23 Dose: 1 spray Calcium Carbonate/Glycine (Tums) 1,000 mg PO Q2H PRN PRN Reason: Indigestion Docusate Sodium (Colace) 100 mg PO BID PRN PRN Reason: Constipation Last Admin: 10/30/16 21:01 Dose: 100 mg Emollient Ointment (Lansinoh Hpa) 1 gm TOP ASDIRECTED PRN PRN Reason: Sore Nipples Ephedrine Sulfate (Ephedrine Sulfate) 5 - 10 mg IVPUSH ASDIRECTED PRN PRN Reason: PER EPIDURAL PROTOCOL Fentanyl (Sublimaze) 100 mcg IVPUSH Q1H PRN PRN Reason: Pain (moderate 4-6) Last Admin: 10/29/16 18:10 Dose: 100 mcg Oxytocin/Sodium Chloride (Pitocin In Ns 20 Units/1,000 Ml) 20 unit in 1,000 mls @ 6 mls/hr IV TITRATE REHANA; 2 MUNITS/MIN PRN Reason: Protocol Last Titration: 10/30/16 02:47 Dose: 0 mls/hr Lactated Ringer's (Ringers, Lactated) 1,000 mls @ 0 mls/hr IV ASDIRECTED REHANA PRN Reason: KVO Last Infusion: 10/29/16 12:57 Dose: 25 mls/hr Cefoxitin Sodium 2 gm/ Sodium (Chloride) 50 mls @ 100 mls/hr IV Q6H REHANA Last Admin: 10/31/16 05:00 Dose: 100 mls/hr Ibuprofen (Motrin) 600 mg PO Q6H PRN PRN Reason: mild pain or fever Last Admin: 10/30/16 09:22 Dose: 600 mg Ibuprofen (Motrin Bulk Bottle) 600 mg PO Q6H PRN PRN Reason: Pain Last Admin: 10/30/16 18:37 Dose: 1 bottle Methylergonovine Maleate (Methergine) 0.2 mg PO TID REHANA Stop: 10/31/16 21:01 Last Admin: 10/31/16 09:23 Dose: 0.2 mg Naloxone HCl (Narcan) 0.1 mg IVPUSH ASDIRECTED PRN PRN Reason: RESPIRATORY STATUS Ondansetron HCl (Zofran) 4 mg IV Q4H PRN PRN Reason: Nausea/Vomiting Sodium Chloride (Saline Flush) 10 ml FLUSH ASDIRECTED PRN PRN Reason: Keep Vein Open Witch Rosario (Tucks) 1 pad TOP ASDIRECTED PRN PRN Reason: Hemorrhoids Last Admin: 10/30/16 09:23 Dose: 1 applic Discontinued Medications Acetaminophen (Tylenol Bulk Bottle) 325 mg PO Q4H PRN PRN Reason: Pain Last Admin: 10/30/16 18:37 Dose: 1 applic Dexamethasone (Dexamethasone) Confirm Administered Dose 4 mg .ROUTE .STK-MED ONE Stop: 10/29/16 22:16 Ephedrine Sulfate (Ephedrine Sulfate) 50 mg IVPUSH ONETIME ONE Stop: 10/29/16 17:26 Last Admin: 10/30/16 05:19 Dose: Not Given Ephedrine Sulfate (Ephedrine Sulfate) 50 mg IVPUSH ASDIRECTED PRN PRN Reason: PER EPIDURAL PROTOCOL Ephedrine Sulfate (Ephedrine Sulfate) Confirm Administered Dose 50 mg .ROUTE .STK-MED ONE Stop: 10/29/16 17:42 Last Admin: 10/30/16 06:03 Dose: Not Given Fentanyl (Sublimaze) Confirm Administered Dose 250 mcg .ROUTE .STK-MED ONE Stop: 10/29/16 22:15 Glycopyrrolate () Confirm Administered Dose 1 mg .ROUTE .STK-MED ONE Stop: 10/29/16 22:16 Lactated Ringer's (Ringers, Lactated) 500 mls @ 500 mls/hr IV BOLUS ONE Stop: 10/29/16 13:29 Last Admin: 10/29/16 14:19 Dose: Not Given Penicillin G Potassium 5 (millunits/ Sodium Chloride) 100 mls @ 100 mls/hr IV ONETIME ONE Stop: 10/29/16 15:59 Last Admin: 10/29/16 14:23 Dose: 100 mls/hr Penicillin G Potassium 2.5 (millunits/ Sodium Chloride) 50 mls @ 100 mls/hr IV Q4H REHANA Last Admin: 10/30/16 07:00 Dose: Not Given Lactated Ringer's (Ringers, Lactated) 1,000 mls @ 999 mls/hr IV BOLUS ONE Stop: 10/29/16 18:13 Last Admin: 10/29/16 17:31 Dose: 999 mls/hr Lactated Ringer's (Ringers, Lactated) 1,000 mls @ 999 mls/hr IV .BOLUS ONE Stop: 10/29/16 18:24 Last Admin: 10/30/16 02:49 Dose: Not Given Lactated Ringer's (Ringers, Lactated) 1,000 mls @ 125 mls/hr IV ASDIRECTED [facility] Last Admin: 10/30/16 00:10 Dose: 125 mls/hr Ropivacaine (Naropin 0.2%) Confirm Administered Dose 100 mls @ as directed .ROUTE .STK-MED ONE Stop: 10/29/16 18:52 Cefazolin Sodium/Dextrose 2 gm (/ Premix) 50 mls @ 100 mls/hr IV ONETIME ONE Stop: 10/29/16 21:53 Last Admin: 10/29/16 22:21 Dose: 100 mls/hr Lactated Ringer's (Ringers, Lactated) 1,000 mls @ 125 mls/hr IV ASDIRECTED [facility] Last Admin: 10/30/16 00:10 Dose: 125 mls/hr Oxytocin/Sodium Chloride (Pitocin In Ns 20 Units/1,000 Ml) 20 unit in 1,000 mls @ 6 mls/hr IV ONETIME ONE; 2 MUNITS/MIN PRN Reason: Protocol Stop: 11/05/16 22:24 Last Admin: 10/29/16 23:45 Dose: 2 munits/min, 6 mls/hr Lidocaine HCl (Xylocaine 1%) Confirm Administered Dose 100 ml .ROUTE .STK-MED ONE Stop: 10/29/16 15:47 Last Admin: 10/30/16 05:19 Dose: Not Given Methylergonovine Maleate (Methergine) Confirm Administered Dose 0.2 mg .ROUTE .STK-MED ONE Stop: 10/29/16 22:22 Last Admin: 10/30/16 06:04 Dose: Not Given Midazolam HCl (Versed 1 Mg/Ml) Confirm Administered Dose 2 mg .ROUTE .STK-MED ONE Stop: 10/29/16 22:15 Naloxone HCl (Narcan) Confirm Administered Dose 0.4 mg .ROUTE .STK-MED ONE Stop: 10/29/16 15:46 Last Admin: 10/30/16 05:18 Dose: Not Given Neostigmine Methylsulfate (Neostigmine) Confirm Administered Dose 5 mg .ROUTE .STK-MED ONE Stop: 10/29/16 22:16 Ondansetron HCl (Zofran) Confirm Administered Dose 4 mg .ROUTE .STK-MED ONE Stop: 10/29/16 22:16 Oxytocin (Pitocin) Confirm Administered Dose 10 unit .ROUTE .STK-MED ONE Stop: 10/29/16 15:46 Last Admin: 10/30/16 05:18 Dose: Not Given Oxytocin (Pitocin) Confirm Administered Dose 20 unit .ROUTE .STK-MED ONE Stop: 10/29/16 22:57 Propofol (Diprivan 20 Ml) Confirm Administered Dose 200 mg .ROUTE .STK-MED ONE Stop: 10/29/16 22:16 Rocuronium [place] (Zemuron) Confirm Administered Dose 50 mg .ROUTE .STK-MED ONE Stop: 10/29/16 22:16 Succinylcholine Chloride (Succinylcholine In Ns Pf) Confirm Administered Dose 200 mg .ROUTE .STK-MED ONE Stop: 10/29/16 22:16 - Interaction Infant Disposition, : in Room with Family Infant Interaction: Holding Feeding: Difficulty with Latch-on, Other (see below) (to pump and give bottle) Support Person: - Recovery Exam Fundal Tone: Firm Fundal Level: 2 Fingerbreadths Below Umbilicus Fundal Placement: Midline Lochia Amount: Small Lochia Color: Rubra/Red Perineum Description: Intact, Minimal Bruising/Swelling Episiotomy/Laceration: Approximated Bladder Status: Voiding Urinary Elimination: Indwelling Catheter, Other (see below) (repair looks great and swelling has subsided) - Exam General: alert, oriented HEENT: Pupils equal, Pupils reactive, EOMI, Mucous membr. moist/pink Neck: supple Lungs: Clear to auscultation, Normal respiratory effort Cardiovascular: Regular Rate, Regular Rhythm Abdomen: bowel sounds present, soft, no tenderness, no distension Extremities: no edema Skin: warm, dry, intact Wound/Incisions: healing well Neurological: no new focal deficit Psy/Mental Status: alert, normal affect, normal mood - Problem List & Annotations (1) hemorrhage SNOMED Code(s): 04101740 Code(s): O72.1 - OTHER IMMEDIATE HEMORRHAGE Status: Acute Current Visit: Yes (2) SNOMED Code(s): 19732143 Code(s): Z33.1 - STATE, INCIDENTAL Status: Acute Current Visit: Yes Qualifiers: Weeks of gestation: 39 weeks Qualified Code(s): Z3A.39 - 39 weeks gestation of (3) PROM (premature rupture of membranes) SNOMED Code(s): 06324070 Code(s): O42.90 - WILLAM ROM, 7TH0 BETW RUPT & ONST LABR, UNSP WEEKS OF GEST Status: Acute Current Visit: Yes Qualifiers: PROM gestational age: full term (4) Chronic ITP (idiopathic thrombocytopenia) SNOMED Code(s): 457776226 Code(s): D69.3 - IMMUNE THROMBOCYTOPENIC PURPURA Status: Chronic Current Visit: Yes (5) Retained placenta SNOMED Code(s): 746021612 Code(s): O73.0 - RETAINED PLACENTA WITHOUT HEMORRHAGE Status: Acute Current Visit: Yes Qualifiers: Retained placenta detail: complete placenta Qualified Code(s): O73.0 - Retained placenta without hemorrhage (6) Prolonged rupture of membranes Status: Acute Current Visit: Yes - Problem List Review Problem List Initiated/Reviewed/Updated: Yes - My Orders Last 24 Hours: My Active Orders 10/30/16 18:27 Ibuprofen [Motrin Bulk Bottle] 600 mg PO Q6H PRN 10/31/16 07:07 Acetaminophen [Tylenol Bulk Bottle] 325 - 650 mg PO Q4H PRN - Assessment Assessment:: 10/29/2016 31 yo normal spontaneous vaginal delivery @ 2042 Medial episiotomy with repair Hemorrhage Retained placenta manual removal in OR Prolonged rupture of membranes Chronic ITP -pumping Labs-A positive, Rubella Immune, RPR nonreactive, Hep B negative, HIV negative, GBS negative, Hgb 13.1 10/30/2016 Patient back up from OR vaginal delivery Fundus firm and bleeding decreasing 10/30/16 PPD 1 Doing well this morning, up and about. Voided without problem. Bleeding light to moderate without clots Repair intact and without hematoma. HGB 12.1, PLT 96440, WBC 17669 on antibiotics times 48 hours Pitocin infusion over the night Happy with baby and pumping to feed. 10/31/16 PPD 2 WBC 14.9 improved greatly overnight HGB 10.5, ok PLT [id number]. doing well, ready to go home - Plan Plan:: 10/29/2016 31 yo at 39 1/7 weeks gestational states she ruptured around 930pm last night but was unsure if leaking was it till a big gush at 0200. SVE-/70/-2 ruptured Labs-GBS negative, A positive, Rubella Immune, RPR Nonreactive, Hep B negative, HIV negative, Hgb 13.1, Platelets 97 Chronic ITP Plan- Monitor for active labor Initiate Pitocin per protocol Up and about monitoring per protocol Pain management per her request Plan and anticipate a vaginal delivery 10/29/2016 Routine Cares Encourage regular pumping Monitor lab values Monitor fundus and bleeding Mefoxin every 6 hours times 48hrs Encourage ice, tucks, and spray to repaired laceration Pain management per patients request Plan Discharge 48 hrs after manual removal of placenta 10/30/2016 LR to run 125ml/hr till am after CBC CBC @ 0400 Continue antibiotics Continue Pitocin IV 125ml/hr till empty Pain management per patient request Advance diet as tolerated Ice to perineum 10/31/15 0830 Stop IV pitocin which to oral methergine times two days Continue antibiotics CBC and PLT in AM Routine cares Support pumping and breast feeding 10/31/16 Home today See me in 6 weeks for a post aprtum visit
[2016-10-31 12:56] VITALS: BP 99/50
--- NOTE | 2016-10-31 14:19 | OR ---
DATE OF PROCEDURE: 10/29/2016 PREOPERATIVE DIAGNOSIS: Probable placenta accreta preventing placental delivery. POSTOPERATIVE DIAGNOSIS: Probable placenta accreta preventing placental delivery. PROCEDURE: Manual delivery of placenta (27026). ANESTHESIA: General. INDICATION FOR PROCEDURE: A 31-year-old undergoing an otherwise uncomplicated vaginal delivery earlier tonight at which time the placenta was not able to be delivered. There appeared to be a point of dense fixation near the apex of the uterine fundus which were not detached. The nurse weapons system instrument mechanic Lucille Vargas initially attempted the delivery and then her partner Chelo Villarreal likewise came in and came to the same conclusion that we are likely dealing with some placenta accreta. The plan at this point will be to proceed with a general anesthetic and I will attempt to manually detach the placenta. The patient is aware that she may need to have a type incision with a delivery and suture of the uterus with remote possibility of needing a hysterectomy were gone over, this in addition to injury to the uterus, as well as remote possibility of cardiopulmonary, septic, or hemorrhagic complications leading to were discussed, and the patient wishes to proceed. DETAILS OF PROCEDURE: The patient was taken to the operating room and after general endotracheal anesthesia was induced, the vaginal area was prepped and draped. With the patient now in a frog-legged position initially, some blood was manually evacuated from the vaginal area. Placing the hand up into the uterus, the point of dense fixation near the superior aspect of the uterine fundus slightly posterior to the very apex was noted. This was gradually able to be manually from the uterus and what appeared to be a reasonably clean plane and from that point the remainder of the placental attachments easily came free and what appeared to be an intact placenta was then delivered. The patient was given IV oxytocin at that point, along with Methergine and good uterine contractions were noted. No significant bleeding was noted over a period of several minutes. At that point, the patient was taken to the recovery room in satisfactory condition. There were no evident complications. Eric Barry MD /[id number]
--- NOTE | 2016-11-05 12:44 | PN ---
DATE OF SERVICE: 10/31/2016 The patient has been afebrile with stable vital signs. No major problems were noted overnight and hemoglobin is stable. She will likely be ready for discharge home per Lucille Vargas CNM. Eric Barry MD /[id number]
== END 2016-10-31 17:25 | disposition home or self-care (01) | DRG 541 ==
LOC: JP.OBCHECK 03:12 → JP.OB 03:13 → OBSVTOIN 20:43 → JP.OB 20:43 → JP.MS 21:00
PROVIDERS: ADMIT Advanced Practice Midwife; ATTEND Surgery
PROC: 10E0XZZ Delivery of Products of Conception, External Approach (ICD-10-PCS; principal; 2016-10-29)
PROC: 10D18ZZ Extraction of Products of Conception, Retained, Via Natural or Artificial Opening Endoscopic (ICD-10-PCS; 2016-10-29)
PROC: 4A1HXCZ Monitoring of Products of Conception, Cardiac Rate, External Approach (ICD-10-PCS; 2016-10-29)
PROC: 3E0R3CZ (ICD-10-PCS; 2016-10-29)
DX: O99.12 Other diseases of the blood and blood-forming organs and certain disorders involving the immune mechanism complicating childbirth (principal); O70.20 Third degree perineal laceration during delivery, unspecified; O72.0 Third-stage hemorrhage; D69.6 Thrombocytopenia, unspecified; Z87.410 Personal history of cervical dysplasia; Z3A.39 39 weeks gestation of pregnancy; Z37.0 Single live birth
CPT/HCPCS: 36415; 80305; 81001; 84112; 85025; 85027; 86850; 86900; 86901; 86920; 86922; 88307; 99211; A9270-GY; J0690; J0694; J1100; J2250; J2405; J2540; J2590; J2704; J2795; J3010; J7030; J7050; J7120

== ENCOUNTER 2025-03-04 07:43 | Day surgery (SDC) | payer BC, OTHER ==
[~2025-03-04 07:43] MED LIST: Midazolam 1 MG/ML 2 ML SDV ONE; Propofol 200 MG/20 ML SDV ONE; fentaNYL 100 MCG/2 ML SDV ONE
[2025-03-04] MEDS: Lactated Ringers 1,000 ML IV SCH (08:18)
[2025-03-04] MEDS ORDERED: Propofol 200 MG/20 ML SDV ONE (09:49)
[2025-03-04] MEDS ORDERED: Ketorolac 30 MG/ML SDV ONE (09:59)
[2025-03-04] MEDS: Lidocaine 1% with EPINEPHrine 1:100,000 50 ML MDV ONE (10:05)
[2025-03-04 11:04] VITALS: BP 110/71; PULSE 72
== END 2025-03-04 11:09 | disposition home or self-care (01) ==
LOC: JP.SDS 07:43
PROVIDERS: ATTEND Surgery
DX: D17.1 Benign lipomatous neoplasm of skin and subcutaneous tissue of trunk (principal)
CPT/HCPCS: 00300; 21931; 81025; 88304; J0665; J0690; J1885; J2250; J2704; J3010; J7120